=== PATIENT | male | born 1945 | race Caucasian/White ===

== ENCOUNTER 2019-10-07 10:28 | Inpatient (IN) | payer MEDICARE, SELFPAY ==
[2019-10-07] VITALS (26 sets, daily range): BP systolic 80–147; BP diastolic 30–94; PULSE 49–110; RESP 12–50; TEMP 34.1–36.3; O2SAT 90–100; BMI 26.0
--- NOTE | ~2019-10-07 | XR_ITS ---
EXAMINATION: XR chest 1V portable DATE: 10/09/2019 05:16 INDICATION: Acute respiratory failure. TECHNIQUE: A single frontal view of the chest was obtained. COMPARISON: Chest single view 10/08/2019, chest CT 10/08/2019 FINDINGS: Lung volumes are small. There are lucencies in the upper lungs. There are diffuse coarse in terstitial opacities in the lungs. There are airspace opacities in the mid and lower lung zones. No p leural effusion or pneumothorax. The heart size is normal. The endotracheal tube tip is 3.9 cm above the vernell. The nasogastric tube tip is in the stomach. An intra-aortic balloon pump is noted. A righ t internal jugular central venous catheter is seen with tip in the superior vena cava. There are mata ges of posterior fusion procedure in lumbar spine. IMPRESSION: 1. Diffuse lung disease with worsening on the left, likely pneumonia superimposed on a combination of emphysema and chronic interstitial lung disease. Reviewed, dictated and finalized at location A. IMPRESSION: 1. Diffuse lung disease with worsening on the left, likely pneumonia superimpos ed on a combination of emphysema and chronic interstitial lung disease.
--- NOTE | ~2019-10-07 | XR_ITS ---
EXAMINATION: XR chest 1V portable DATE: 10/08/2019 06:15 INDICATION: Acute respiratory failure. TECHNIQUE: A single frontal view of the chest was obtained. COMPARISON: Chest view 10/07/2019 FINDINGS: Lung volumes are small. There are diffuse coarse interstitial opacities in the lungs. No pl eural effusion or pneumothorax. The heart size is normal. The endotracheal tube tip is 4.8 cm above t he vernell. The nasogastric tube tip is in the stomach. A right internal jugular central venous cathet er is seen with tip in the superior vena cava. A surgical clip overlies the left hilum. There are glory nges of posterior fusion procedure in lumbar spine. IMPRESSION: 1. Stable diffuse lung disease, likely severe chronic interstitial lung disease. Reviewed, dictated and finalized at location A. IMPRESSION: 1. Stable diffuse lung disease, likely severe chronic interstitial lung disease .
--- NOTE | ~2019-10-07 | XR_ITS ---
EXAMINATION: XR abdomen NG/feed tube insert DATE: 10/07/2019 14:11 INDICATION: Nasogastric tube placement. TECHNIQUE: A supine view of the abdomen was obtained. COMPARISON: None. FINDINGS: The lower abdomen is excluded. There are no visible dilated loops of bowel. The nasogastric tube tip is in the stomach. The proximal side port is at the gastroesophageal junction. There are ch anges of posterior fusion procedure in lumbar spine. IMPRESSION: 1. Nasogastric tube tip in the stomach. Reviewed, dictated and finalized at location A.
--- NOTE | ~2019-10-07 | CT_ITS ---
EXAMINATION: CT brain wo con DATE: 10/08/2019 16:28 INDICATION: Altered mental status TECHNIQUE: Computed tomography (CT) of the head was performed without intravenous contrast. Sagittal and coronal reconstructions were performed. Automated exposure control and iterative reconstruction t echnique were employed. The dose-length product was 605.33 mGy-cm. COMPARISON: None FINDINGS: There is diffuse decrease in the conspicuity of the white matter differentiation along with effacemen t of the sulci and many of the basal cisterns suggesting diffuse cerebral edema and concerning for an oxic brain injury. No acute intracranial hemorrhage or abnormal extra axial fluid collection. Ventric les are symmetric but smaller in size than expected for age. The cerebellar tonsils appear low lying extending a few millimeters caudal to the level of the foramen magnum and suggesting developing tonsi llar herniation. No discrete masses identified. 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 Changes of left intraocular lens replacement. Mild mucosal thickening in the right sphenoid and alfred ateral ethmoid sinuses. Bilateral mastoid air cells and middle ear cavities are clear. There is small amount of cerumen/debris in the bilateral external auditory canals. Intracranial calcified cerebral atherosclerosis is noted. Left-sided nasogastric tube in expected position. IMPRESSION: 1. Suggestion of diffuse anoxic injury with global cerebral edema characterized by decrease in degree of orta-white matter differentiation, effacement of the sulci and basal cisterns and suggestion of d eveloping cerebellar tonsillar herniation. Reviewed, dictated and finalized at location A. IMPRESSION: 1. Suggestion of diffuse anoxic injury with global cerebral edema characterized by decrease in degree of orta-white matter differentiation, effacement of the sulci and basal cisterns and suggestion of developing cerebellar tonsillar juliano iation.
--- NOTE | ~2019-10-07 | XR_ITS ---
EXAMINATION: XR chest port-a-cath/central DATE: 10/07/2019 14:11 INDICATION: Intubation. TECHNIQUE: A single frontal view of the chest was obtained. COMPARISON: Left shoulder radiographs 11/10/2010 FINDINGS: Lung volumes are normal. There are coarse interstitial opacities throughout the lungs bilat erally. No pleural effusion or pneumothorax. The heart size is normal. The endotracheal tube tip is 4 .0 cm above the vernell. The nasogastric tube tip is in the stomach. A right internal jugular central venous catheter is seen with tip in the superior vena cava. There are surgical clips in the left neck . A surgical clip overlies the left hilum. IMPRESSION: 1. Diffuse lung disease, likely severe chronic interstitial lung disease. Reviewed, dictated and finalized at location A.
--- NOTE | ~2019-10-07 | XR_ITS ---
EXAMINATION: XR chest 1V portable DATE: 10/10/2019 06:04 INDICATION: Acute respiratory failure. TECHNIQUE: A single frontal view of the chest was obtained. COMPARISON: Chest single view 10/09/2019 FINDINGS: The lung volumes are small. There are interstitial and airspace opacities throughout the kymberly ngs bilaterally. No pleural effusion. There is a tiny right-sided pneumothorax with deep sulcus sign. There is gas in the neck and right chest wall. The heart size is normal. The endotracheal tube tip i s 4.3 cm above the vernell. The nasogastric tube tip is in the stomach. A right internal jugular centr al venous catheter is seen with tip in the superior vena cava. An intra-aortic balloon pump is noted. There are changes of posterior fusion procedure in lumbar spine. IMPRESSION: 1. Tiny right-sided pneumothorax. New soft tissue gas in the neck and right chest wall. I called thes e findings to Srinath Prado on 10/10/19 at 6:45 AM. 2. Stable diffuse lung disease, likely pneumonia superimposed on a combination of emphysema and chron ic interstitial lung disease. Reviewed, dictated and finalized at location A. IMPRESSION: 1. Tiny right-sided pneumothorax. New soft tissue gas in the neck and right melquiades st wall. I called these findings to Srinath Prado on 10/10/19 at 6:45 AM. 2. Stable diffuse lung disease, likely pneumonia superimposed on a combination of emphysema and chronic interstitial lung disease.
--- NOTE | ~2019-10-07 | US_ITS ---
EXAMINATION: US venous doppler [facility] DATE: 10/07/2019 16:11 INDICATION: Deep venous thrombosis TECHNIQUE: Grayscale ultrasound images without and with compression and Doppler ultrasound images of the bilateral lower extremity veins were obtained. COMPARISON: None. FINDINGS: The visualized portions of right common femoral vein, profunda (deep) femoral vein, femoral vein, pop liteal vein, posterior tibial veins, peroneal veins, gastrocnemius vein and greater saphenous vein ou tflow are patent. The visualized portions of left common femoral vein, profunda femoral vein, femoral vein, popliteal v ein, posterior tibial veins, peroneal veins, gastrocnemius vein and greater saphenous vein outflow ar e patent. IMPRESSION: 1. No deep venous thrombosis in either lower limb. Reviewed, dictated and finalized at location A.
--- NOTE | ~2019-10-07 | CT_ITS ---
EXAMINATION: CTA chest PE protocol EXAM DATE: 10/08/2019 16:29 INDICATION: Cardiac arrest. TECHNIQUE: Spiral CTA of the chest (pulmonary arteries) was performed with 100 cc Omnipaque 350 intr avenous contrast injection. Images were acquired during the pulmonary arterial phase. Coronal maxi mum intensity projection 3D-reconstructions were created by the technologist on dedicated workstation . Axial, coronal and sagittal reformatted images were reviewed. The dose-length product (DLP) for t his examination was 679.24 mGy-cm. The exposure was tailored according to patient size (auto mA exp osure control), and iterative reconstruction (ASIR) was used as additional dose reduction technique. There is no prior study for comparison. FINDINGS: Pulmonary arteries are well opacified and without intraluminal filling defects. Patient is intubated with endotracheal tube in position. No thoracic aortic dissection. There is severe inter stitial lung pulmonary fibrosis, honeycombing. There is dependent airspace disease which is likely oscar perimposed acute pneumonia and/or edema. No endobronchial debris to specifically suggest aspiration p neumonia. There are no pleural or pericardial effusions. Right hilar lymph node measuring 1.6 x 1. 0 cm, probably reactive. There is moderate emphysema. There is no pneumothorax. There is cardiomega ly. There is mild to moderate coronary arterial calcification, arterial sclerosis. Upper abdomen is unremarkable. There is thoracic spondylosis without osteoblastic or osteolytic lesions identified. Feeding tube in position. There is acute right 2nd rib fracture anteriorly, acute left 2nd, 4th and 5th and 6th rib fractures anteriorly. Chronic moderate compression fracture of T12. IMPRESSION: 1. No pulmonary emboli. 2. Severe pulmonary fibrosis with moderate basilar dependent acute airspace disease superimposed lik marifer pneumonia and/or edema. 3. Cardiomegaly. 4. Emphysema. 5. Rib fractures. Reviewed, dictated and finalized at location B. IMPRESSION: 1. No pulmonary emboli. 2. Severe pulmonary fibrosis with moderate basilar dependent acute airspace di sease superimposed likely pneumonia and/or edema. 3. Cardiomegaly. 4. Emphysema. 5. Rib fractures.
--- NOTE | 2019-10-07 10:32 | ECG_ITS ---
Measurements Intervals [place] Rate: 68 P: MA: 0 QRS: -15 QRSD: 123 T: -70 QT: 414 QTc: 443 Interpretive Statements ATRIAL FIBRILLATION RSR' IN V1 OR V2, CONSIDER RIGHT VENTRICULAR HYPERTROPHY OR RIGHT VCD ST ELEVATION IN INFERIOR LEADS- CONSIDER ACUTE INJURY MARKED ST DEPRESSION IN ANTEROLAT/HIGH LAT LEADS, CONSIDER SUBENDOCARDIAL INJURY ABNORMAL ECG Electronically Signed On 10-07-2019 12:08:39 CDT by Regino Marcano D.O.
--- NOTE | 2019-10-07 10:39 | ED.GENADULT ---
HPI - General Adult General Chief complaint: Unspecified Stated complaint: ROSC Time Seen by Provider: 10/07/19 10:32 Source: EMS Mode of arrival: EMS History of Present Illness HPI narrative: Patient presents via EMS for respiratory distress. He was in agonal breathing and intubated upon arrival. He lost a pulse and had CPR and 1 dose of epi. Pulse was regained. Then in route again he lost a pulse and was given epi. Again he regained a pulse. He arrived to the ER with no spontaneous movement. Pupils are unreactive. He has a good carotid pulse, but cannot palpate a radial pulse. His had called EMS for difficulty breathing. Onset (ago): hour(s) Review of Systems Review of Systems: Narrative: Unable to get a review of systems because the patient is. Unresponsive. Exam Narrative: Exam Narrative: Patient is unresponsive. He has bruising in his mid chest. Chest has pectus excavatum. Breath sounds are good with bagging. Good carotid pulse. Good heart sounds. His feet. Course Consultations Consultation #1: EKG has ST elevation and a STEMI was called. Dr. Santos responded immediately. Dr. Miramontes will take him to the [facility] Air Traffic Control Specialist. Date: 10/07/19 Time: 10:47 Vital Signs Vital signs: Vital Signs Temperature 96.5 F L 10/07/19 10:27 Pulse Rate 68 10/07/19 10:27 Respiratory Rate 12 10/07/19 10:27 Blood Pressure 81/68 L 10/07/19 10:27 Pulse Oximetry 100 10/07/19 10:27 Temperature 96.5 F L 10/07/19 10:27 Pulse Rate 77 10/07/19 10:38 Respiratory Rate 12 10/07/19 10:27 Blood Pressure 81/68 L 10/07/19 10:27 Pulse Oximetry 100 10/07/19 10:27 Medical Decision Making Vital Signs Vital Signs: Vital Signs Temperature 96.5 F L 10/07/19 10:27 Pulse Rate 68 10/07/19 10:27 Respiratory Rate 12 10/07/19 10:27 Blood Pressure 81/68 L 10/07/19 10:27 Pulse Oximetry 100 10/07/19 10:27 Temperature 96.5 F L 10/07/19 10:27 Pulse Rate 77 10/07/19 10:38 Respiratory Rate 12 10/07/19 10:27 Blood Pressure 81/68 L 10/07/19 10:27 Pulse Oximetry 100 10/07/19 10:27 ECG Data EKG #1: Attestation: I personally reviewed and interpreted this ECG as follows: ECG completion date: 10/07/19 ECG completion time: 10:33 Prior ECG tracings: not available for review Ischemic changes: acute STEMI Critical Care Time Critical Care Time Critical Care Time: Yes Total Critical Care Time: 30 Discharge Plan Discharge Clinical Impression: Acute ST elevation myocardial infarction (STEMI), Respiratory failure, Unresponsive Patient Disposition: Still a Patient Condition: Guarded Prognosis Follow-up/Referrals: PHYSICIAN NOT ON STAFF,NONSTAFF [Primary Care Provider] -
--- NOTE | 2019-10-07 10:48 | PC.NURSE ---
called lab about add-ons
[2019-10-07 10:49] LABS: Basophils Absolute Auto 0.2 K/mm3 (0.0-0.1); Basophils Percent Auto 0.9 % (0.2-1.2); Eosinophils Absolute Auto 0.3 K/mm3 (0-0.3); Eosinophils Percent Auto 1.5 % (0-4.4); Hematocrit 30.6 % (42.0-52.0); Hemoglobin 9.6 g/dL (14.0-18.0); Immature Granulocyte Absolute 1.16 K/mm3 (0.00-0.031); Immature Granulocyte Percent A 6.5 % (0-0.5); Lymphocytes Absolute Auto 9.21 K/mm3 (0.9-3.2); Lymphocytes Percent Auto 51.3 % (18.3-44.2); Mean Corpuscular HGB Conc 31.4 g/dl (32-36); Mean Corpuscular Hemoglobin 32.4 pg (26-34); Mean Corpuscular Volume 103.4 fl (80-100); Mean Platelet Volume 10.5 fl (7.4-10.4); Monocytes Absolute Auto 0.8 K/mm3 (0.1-0.6); Monocytes Percent Auto 4.6 % (2.6-8.5); Neutrophils Absolute Auto 6.3 K/mm3 (1.3-6.7); Neutrophils Percent Auto 35.2 % (45.5-73.1); Nucleated Red Blood Cells Absolute Auto 0.1 K/mm3 (0.0-0.012); Nucleated Red Blood Cells Perc 0.7 % (0.0-0.2); Platelet Count Result 187 k/mm3 (150-375); Red Blood Count 2.96 M/mm3 (4.6-6.20); Red Cell Distribution Width 13.6 % (11.5-14.5)
[2019-10-07 11:02] LABS: Albumin Level 3.5 g/dL (3.5-5.1); Alkaline Phosphatase 119 U/L (38-126); Anion Gap 19 mmol/L (8-16); Aspartate Amino Transferase 77 U/L (17-59); Bilirubin,Total 0.5 mg/dL (0.2-1.3); Blood Urea Nitrogen 16 mg/dL (9-20); Calcium 9.4 mg/dL (8.4-10.2); Carbon Dioxide 14 mmol/L (22-30); Chloride 106 mmol/L (98-107); Estimated CRCL calculation 46 ml/min; Estimated Glomerular Filt Rate 59; Glucose 294 mg/dL (75-110); Potassium 4.3 mmol/L (3.4-5.0); Sodium 139 mmol/L (137-145)
[2019-10-07 11:11] LABS: Alanine Aminotransferase 52 U/L (4-50)
[2019-10-07 11:24] LABS: Add Urine Microscopic? YES; Appearance Urine Clear (Clear); Bacteria Urine Trace /hpf; Bilirubin Urine Negative (Negative); Blood Urine Negative (Negative); Color Urine Yellow (Yellow); Glucose Urine UA Negative (Negative); Ketones Urine Trace mg/dL (Negative); Leukocyte Esterase Ur Negative LEU/UL (Negative); Mucus Urine Rare /lpf; Nitrate Urine Negative (Negative); Protein Urine 1+ mg/dL (Negative); WBC Urine 0-3 /hpf
[2019-10-07 11:27] LABS: NT Pro B Type Natriuretic Pept 7090 PG/ML (5-100)
--- NOTE | 2019-10-07 12:02 | WPDCARDPROC ---
Cardiac Cath Procedure Note Date of procedure:: 10/07/19 Performing physician:: Isaías Miramontes MD Indication:: Out of hospital PA arrest abnormal ECG suggestive of acute inferior infarction upon arrival Brief clinical history:: this is a 74-year-old patient who sustained an hrx-jc-qoxohean arrest and upon arrival in the seen found to be in pulseless electrical activity. He was resuscitated twice and is found to be hypotensive in the emergency room. The patient was intubated in the field. His electrocardiogram is consistent with acute inferoposterior infarction and for this reason emergency catheterization was requested. Procedure Procedure performed:: Emergency coronary angiography left ventriculography attempt RCA PCI placement of intra-aortic balloon pump Sedation/Medication given:: patient unresponsive no sedation delivered in the fence laborer Case start time 11:10 a.m. case end time 12 noon Access site:: right femoral artery, right femoral vein Estimated blood loss:: 30-40 cc Procedure note:: patient was brought to the cardiac catheterization lab intubated and unresponsive. The right femoral triangle was prepared in the usual fashion and I used the modified Seldinger technique to place 6 Polish sheaths in the femoral artery and in the femoral vein. Venous access was placed as the patient was noted to be concerning the bradycardic in the emergency room earlier. Following access the left coronary artery was engaged and injected using a standard 5 Polish FL4 catheter. The right coronary was engaged and injected sing a standard 5 Polish JR4 catheter. Following this patient was systemically anticoagulated with Angiomax and a attempt was made at right coronary PCI as detailed below. Following this attempt guiding catheter and guidewires. A 5 Polish angled pigtail catheter was then advanced into the left ventricle and a left ventriculogram was performed in the URBINA projection. Following this I elected to place the intra-aortic balloon pump the device was secured into position the patient was taken to the intensive care unit for further management. Findings:: Hemodynamics: central aortic pressure 66/32, left ventricle 66/6 end-diastolic 14. No gradient on pullback across the aortic valve. Left ventricle: The LV was injected in the URBINA projection is of normal size and contracts hyperdynamic fashion the ejection fraction is visually estimated to be 80%. There are no regional wall motion abnormalities. The left main coronary artery is medium in caliber there is modest left main disease proximally to approximately 30-40% left main stenosis is identified which is eccentric. The left main coronary artery is moderate to large in caliber it is very tortuous and without significant disease it is patent down to the apex. The circumflex is also a medium caliber vessel that is widely patent and very tortuous. The marginal branches have no significant stenosis. Right coronary artery is dominant to the posterior circulation it is 100% occluded in the 2nd portion. There are 2 RV branches receiving flow prior to the occlusion. There is excellent very well-developed collaterals to the. RCA occluded both the PDA and the PL branches fill from the left coronary artery. They are large and of good caliber. Because of the acute presentation I did attempt to PCI of the occluded RCA and engaged the vessel with a 6 Polish JR4 guiding catheter with side holes. Both 0.014 BMW and a 0.014 gliding pilot instructor wire were advanced to the lesion the Instrument Adjuster wire was actually advanced through the stenosis into the 3rd portion of the RCA. Angioplasty balloon however would not advanced beyond the site of occlusion the vessel appears to clearly be a chronic total occlusion and further attempts at PCI of this are not indicated Conclusion:: 1. out of hospital cardiac arrest with pulseless electrical activity etiology currently on clear 2. abnormal electrocar
--- NOTE | 2019-10-07 13:15 | PM.IMHP ---
H&P: HPI History of Present Illness Date/Time: Date of service: 10/07/19 13:15 Chief complaint: STEMI Narrative: Perico Rhoades is a 74 year old male who presented to the emergency department via EMS called by his after he was unresponsive as he is going to sent bedside commode found have agonal breathing by EMS. He was unresponsive subsequently found to be in PEA arrest for which ACL protocol was administered with ROSC after one round of CPR with Epinephrine. Enroute, patient once again became pulseless resuscitated again after 1 round of CPR and epinephrine. In the emergency department 12 EKG revealed significant inferior ST elevations with posterior extension and anterolateral reciprocal changes consistent with acute current of injury patient was hypotensive and initially bradycardic followed by rate controlled atrial fibrillation. He was unresponsive ER. After further discussion with the case with Dr. Miramontes decision was made take the patient to the cardiac catheterization lab emergently. Patient's is not available at this time as patient was unable to provide any history. After my initial encounter with the patient records became available he was apparently hospitalized at [facility] August 14, 2019 for acute on chronic respiratory failure and is noted to have a history of chronic respiratory failure on O2 6 L nasal cannula recently increased and 9 L worsening shortness of breath per documentation obtained from the patient's . Feeling relatively weak this altogether and on well. At per documentation from [facility] she apparently had a cardiac catheterization performed a few months prior to that admission. Those details remain unknown. Patient has a prior documented history of diabetes mellitus, hypertension, dyslipidemia, I LD or chronic kidney disease, chronic respiratory failure with hypoxia on chronic home O2, coronary artery disease. During his recent hospitalization he was treated with ceftriaxone and azithromycin, COVID swab was negative x2. He was given pulse dose steroids. Review of Systems Review of Systems: All systems reviewed & are unremarkable except as noted in HPI and below ROS unobtainable: Yes unobtainable due to endotracheal tube, unobtainable due to mental status and other ( Patient unresponsive) Constitutional: Constitutional: Reports as per HPI and Reports no additional constitutional complaints Eyes: Eyes: Reports as per HPI and Reports no additional eye complaints ENT: Reports system reviewed and no additional complaints, except as documented and Reports as per HPI Cardiovascular: Cardiovascular: Reports as per HPI and Reports no additional cardiovascular complaints Respiratory: Respiratory: Reports as per HPI and Reports no additional respiratory complaints Gastrointestinal: Gastrointestinal: Reports as per HPI and Reports no additional gastrointestinal complaints Genitourinary: Genitourinary: Reports no additional male genitourinary complaints and Reports as per HPI Musculoskeletal: Musculoskeletal: Reports no additional musculoskeletal complaints and Reports as per HPI Integumentary/Breasts: Skin/Breast: Reports system reviewed and no additional complaints, except as docu and Reports as per HPI Neurologic: Reports system reviewed and no additional complaints, except as documented and Reports as per HPI Psychiatric: Psychiatric: Reports no additional psychiatric complaints and Reports as per HPI Endocrine: Endocrine: Reports no additional endocrine complaints and Reports as per HPI Hematologic/Lymphatic: Hematologic/Lymphatic: Reports no additional hematologic/lymphatic complaints and Reports as per HPI Allergic/Immunologic: Allergic/Immunologic: Reports no additional allergic/immunologic complaints and Reports as per HPI [facility] Past Medical History Medical History Asbestos exposure Chronic back pain Coronary artery disease Diabetes Esse
--- NOTE | 2019-10-07 13:18 | ECHO_ITS ---
Patient Info Name: Perico Rhoades Age: 74 years : 1945 Gender: Male Ht: 68 in Wt: 159 lbs BSA: 1.87 m2 HR: 91 bpm BP: 85 / 36 mmHg Heart Rhythm: Sinus Rhythm Technical Quality: Fair Exam Date: 10/07/2019 2:35 PM Exam Location: [facility] Patient Status: Inpatient Admit Date: 10/07/2019 Staff Ordering Physician: August Santos MD Numerical Control Nesting Operator: Vidhya Wills RDCS Attending Provider: August Santos MD Referring Physician: Tom LAY; Exam Type: CA echo doppler color flow Study Info Indications I46.9 - Cardiac arrest, cause unspecified Complete two-dimensional, color flow and Doppler transthoracic echocardiogram is performed. Summary 1. Left ventricular systolic function is normal, estimated at 65-70%. 2. There is no increased left ventricular wall thickness. 3. The left ventricular diastolic function is grade I diastolic dysfunction. 4. D shaped septum in systole and diastole consistent with right ventricular pressure and/or volume overload. 5. Right ventricular chamber dimension is severely enlarged. 6. Right ventricular systolic function is severely reduced. 7. Right atrial chamber dimension is mildly enlarged. 8. There is no aortic valve stenosis. 9. There is trace mitral valve regurgitation. 10. There is mild tricuspid valve regurgitation. 11. Moderate pulmonary hypertension, estimated pulmonary arterial systolic pressure is 45 mmHg. 12. Normal inferior vena cava with >50% collapse upon inspiration consistent with normal right atrial pressure, 5 mmHg. Left Ventricle Left ventricular chamber dimension is normal. Left ventricular systolic function is normal, estimated at 65-70%. There is no increased left ventricular wall thickness. The left ventricular diastolic function is grade I diastolic dysfunction. D shaped septum in systole and diastole consistent with right ventricular pressure and/or volume overload. Right Ventricle Right ventricular chamber dimension is severely enlarged. Right ventricular systolic function is severely reduced. Left Atria Left atrial chamber dimension is normal. Right Atria Right atrial chamber dimension is mildly enlarged. Aortic Valve The aortic valve is trileaflet. There is mild aortic valve sclerosis. There is no aortic valve stenosis. There is trace aortic valve regurgitation. Pulmonic Valve The pulmonic valve is not well visualized. Mitral Valve The mitral valve has normal leaflets. There is trace mitral valve regurgitation. The mitral valve annulus is moderately calcified. Tricuspid Valve The tricuspid valve leaflets are normal. There is mild tricuspid valve regurgitation. Moderate pulmonary hypertension, estimated pulmonary arterial systolic pressure is 45 mmHg. Pericardium/Pleural The pericardium appears normal. There is no pericardial effusion. Inferior Vena Cava Normal inferior vena cava with >50% collapse upon inspiration consistent with normal right atrial pressure, 5 mmHg. Aorta The aortic root size at the sinus of Valsalva is normal. Left Ventricular Outflow Tract Name Value Normal LVOT 2D LVOT Diameter 2.0 cm LVOT Doppler
--- NOTE | 2019-10-07 13:47 | ADMGEN ---
This patient, Perico Rhoades, was admitted to Intensive Care Unit-11. Patient/family oriented to hospital policies and general routines including ID bracelet, bed and alarms, visiting hours, pain management, procedures, bathroom and other care routines, personal items, smoking policy, room service/diet, and visiting hours. Valuables list has been completed. Information on how to activate the Rapid Response Team has been discussed. Patient/Family are encouraged to report perceived risks to care and to ask questions if they do not understand what they are told or what they should do.
--- NOTE | 2019-10-07 14:01 | WPDCNINT ---
Assessment and Plan Assessment and plan (1) Cardiopulmonary arrest with successful resuscitation: Code(s): I46.9 - Cardiac arrest, cause unspecified Status: Acute Assessment and Plan: patient with PEA arrest. According to the likely prolonged down time before EMS could arrive (approximately 30 minutes). CPR on the field with ROSC after 1 round of epi, patient was again pulseless EN route to the ER, CPR with another round of epi before ROSC. - Patient has been unresponsive - cardiac catheterization with no acute coronary /cardiac event - intra-aortic balloon pump in place due to severe hypotension (2) Acute ST elevation myocardial infarction (STEMI): Qualifiers: Involved coronary artery: unspecified coronary artery Qualified Code(s): I21.3 - ST elevation (STEMI) myocardial infarction of unspecified site Code(s): I21.3 - ST elevation (STEMI) myocardial infarction of unspecified site Status: Acute Assessment and Plan: acute ST-elevation RI on EKG done in the ER status post coronary artery angiogram which demonstrated chronic total occlusion of the right coronary artery with excellent collateral filling and hyperdynamic LV systolic function with EF of 80%. Modest nonocclusive left main disease otherwise no significant left coronary disease. - No intervention was done (3) Respiratory failure: Qualifiers: Chronicity: acute Respiratory failure complication: unspecified whether with hypoxia or hypercapnia Qualified Code(s): J96.00 - Acute respiratory failure, unspecified whether with hypoxia or hypercapnia Code(s): J96.90 - Respiratory failure, unspecified, unspecified whether with hypoxia or hypercapnia Status: Acute Assessment and Plan: patient was intubated on the field by EMS - this could likely be secondary to shock, acidosis, acute on chronic respiratory failure secondary to moderate interstitial lung disease. - Patient currently intubated on CMV mode of ventilation, ABGs reviewed, ventilator adjusted - chest x-ray shows bilateral diffuse infiltrates - started patient on ceftriaxone and azithromycin - obtain urine Legionella, urine pneumococcal antigen - sputum culture pulmonary function test on 07/25/2019 at [facility] showed moderate restrictive ventilatory defect ( report is in the chart) (4) Shock: Code(s): R57.9 - Shock, unspecified Status: Acute Assessment and Plan: shock, initially thought to be cardiogenic but most likely septic - severe hypotension, lactic acidosis which could be multifactorial his 2nd to cardiac arrest and septic shock - will give IV fluid bolus - monitor urine output - continue antibiotics as above - blood and urine cultures have to obtained along with urinalysis - start patient on stress dose steroids - elevated lactic acidosis, will trend (5) Diabetes: Code(s): E11.9 - Type 2 diabetes mellitus without complications Status: Acute Assessment and Plan: Accu-Cheks with high-dose sliding scale for hyperglycemia - hemoglobin A1c of 8.1 this admission (6) DVT prophylaxis: Code(s): Z29.9 - Encounter for prophylactic measures, unspecified Status: Acute Assessment and Plan: SCDs (7) Dietary counseling and surveillance: Code(s): Z71.3 - Dietary counseling and surveillance Status: Acute Assessment and Plan: NPO for now Additional Plan discussed with along with Dr. Mcgregor, updated her with patient's condition, lab, radiology at cardiac catheterization reports. Also history was obtained to a good extent from the . I Answered all questions. I did discuss regarding code status to which the requested that we make him a do not resuscitate. Code status: do not resuscitate critical care time spent: 54 minutes Due to a high probability of clinically significant, life threatening
[2019-10-07 14:18] LABS: Fractional Inspired Oxygen 100 %; HCO3 ABG 8.8 mEq/l (22.0-26.0); Oxygen Content ABG 15.5 %vol (16.0-22.0); Oxygen Saturation ABG 99.6 % (95.0-100.0); Oxyhemoglobin 98.2 % THb (90.0-100.0); PCO2 ABG 30.9 mmHg (35.0-45.0); PO2 ABG 362.1 mmHg (80.0-100.0); PO2 FiO2 Ratio Arterial Blood 3.62 %; Total Hemoglobin 10.5 g/dL (12.0-18.0)
[2019-10-07 14:19] LABS: Device VENTILATOR; Site Drawn ARTLINE; pH ABG 7.073 (7.350-7.450)
[2019-10-07 14:20] LABS: Arterial Blood Gas PEEP 5 cmH2O; Arterial Blood Gas Tidal Volume 450 ml; Arterial Blood Gas Vent Mode CMV; Arterial Blood Gas Ventilator rate 14 /MIN
[2019-10-07 14:35] LABS: Lactic Acid 12.1 mmol/L (0.7-2.1)
[2019-10-07 14:36] LABS: Troponin I 0.424 ng/mL (0.000-0.034)
[2019-10-07 14:36] LABS: Hemoglobin 9.8 g/dL (14.0-18.0); Mean Corpuscular HGB Conc 31.6 g/dl (32-36); Mean Corpuscular Volume 101.3 fl (80-100); Mean Platelet Volume 10.1 fl (7.4-10.4); Platelet Count Result 209 k/mm3 (150-375); Red Blood Count 3.06 M/mm3 (4.6-6.20); Red Cell Distribution Width 13.6 % (11.5-14.5); White Blood Count 23.4 K/mm3 (4.5-10.0)
[2019-10-07 14:46] LABS: INR 1.8; Prothrombin Time 20.6 Seconds (11.1-14.7)
[2019-10-07 14:49] LABS: Hemoglobin A1C 8.1 % (<5.7)
[2019-10-07] MEDS: NOREPINEPHRINE 8 MG/D5W 250 ML 8 MG/250 ML BAG 37.5 MG IV CONT ×2 (14:50→20:57)
[2019-10-07] MEDS: SODIUM BICARBONATE 8.4% 50 MEQ/50 ML VIAL 100 MEQ IV PUSH ×2 (14:51→19:06)
[2019-10-07] MEDS: SODIUM CHLORIDE 0.9% IV 1,000 ML 999 ML IV CONT ×2 (14:51→15:53)
[2019-10-07 14:54] LABS: Band Neutrophils Percent 13 % (0-6); Monocytes Absolute Manual 1.63 K/mm3 (0.1-0.90); Monocytes Percent Manual 7 % (3-9); Neutrophils Absolute Manual 19.65 K/mm3 (1.3-6.7); Neutrophils Percent Manual 71 % (46-73); Platelet Estimate Adequate (Adequate); Total Cells Counted 100
--- NOTE | 2019-10-07 14:56 | P.PCNBED_ITS ---
Procedures Central Line Placement Right IJ: Central Line Date: 10/07/19 Discussed w/ the patient/family/POA,the placement of a central venous catheter, including its clinical necessity/indication & associated potential risks, benifits and alternatives.: Yes The patient/family/POA understand(s) and acknowledge(s) the need to proceed with central venous catheter insertion as an important element of the patient's clinical management.: Yes Time Out Performed: Yes Patient Position: supine Patient placed on monitor/pulse ox: Yes Provider Prep: mask, sterile gown, sterile gloves, Max. sterile barrier precautions, cap and hand hygiene with conventional soap/water or alcohol based hand rub Central line prep: 2% Chlorhexidine scrub and sterile full body sheet applied Local anesthesia used: lidocaine 1% Amount of anesthesia used (ml): 3 Sterile US Technique with sterile gel/sterile probe covers: Yes Central line lumen inserted: triple Setswana: 16 Length (cm): 16 Depth of Insertion (cm): 16 Post procedure: sutured in place, good blood return, all ports aspirated, flushed, capped, tegaderm, hemostatic disc, antimicrobial disc and aseptic technique maintained throughout procedure Post procedure x-ray: tip of catheter in good position and no pneumothorax seen Patient tolerated procedure: well and no complications Complications: none
--- NOTE | 2019-10-07 14:58 | WPDPROCEDUR ---
Procedures Arterial Line Arterial Line Date: 10/07/19 Discussed with the patient/family/POA, the placement of an arterial catheter, including its clinical necessity/indication and associated potential risks, benefits and alternatives.: Yes Patient/family/POA and/or understands and acknowledges the need to proceed with the arterial catheter insertion as an important element of the patient's clinical management.: Yes Time Out Performed: Yes Patient Position: supine Sports Medicine Physician Prep: sterile gown, sterile gloves, mask and hat Site: left and femoral Site Prep: chlorhexidine and sterile drape Skin Anesthesia: 1% lidocaine Technique used: ultrasound-guided Length: 12 cm Closure/Dressing: suture, antimicrobial disc and tegaderm Patient tolerated procedure: well and no complications Complications: none
[2019-10-07 15:02] LABS: Lactic Acid Reflex 12.3 mmol/L (0.7-2.1)
[2019-10-07 15:16] LABS: D Dimer > 20.00 ug/mL (<0.48); Partial Thromboplastin Time 197.6 SECONDS (22.3-36.8)
[2019-10-07] MEDS: SODIUM BICARBONATE 8.4% 150 MEQ in WATER, STERILE FOR INJECTION 950 ML 75 MEQ IV CONT (15:21)
[2019-10-07] MEDS: HYDROCORTISONE SODIUM SUCCINATE 100 MG/2 ML VIAL IV PUSH ×2 (15:52→21:02)
[2019-10-07] MEDS: levETIRAcetam 500MG/NACL 100ML 500 MG/100 ML BAG 400 MG IVPB (15:58)
--- NOTE | 2019-10-07 16:09 | PM.CNPUL ---
Assessment and Plan Assessment and plan (1) Pulmonary fibrosis: Code(s): J84.10 - Pulmonary fibrosis, unspecified Status: Acute Assessment and Plan: Likely IPF/UIP. Will need pulmonary records from [place]. Apparently he recently was hospitalized for presumed IPF exacerbation in July 2019 and was treated with pulse dose steroids as well as antibiotics I''m sure. He's only requiring 60% FiO2 with PEEP of 5. Not quite sure if he's having an exacerbation. Agree with hydrocortisone for possible relative adrenal insufficiency. Low TV volume strategy TV 400-450 based on his height. Manage metabolic acidosis with bicarb drip. Current recommend settings CMV AC/VC: TV 450, RR 30, FiO2 60%, PEEP of 5, titrate FiO2 for 92-96%. Sputum culture. Prognosis if very poor and high risk for . DNR is appropriate and if he continues to get worse, consider offering comfort measures. SARS-CoV-2 pending. (2) Shock: Code(s): R57.9 - Shock, unspecified Status: Acute Assessment and Plan: Cardiogenic shock rule out. Likely septic. P.E. may also be possible but he's too unstable for CT P.E. Echo pending. RV may be strained due to chronic IPF and hypoxia. Recommend IVF boluses gently along with vasopresor support, broad spectrum antibiotics and cultures. History of Present Illness History of Present Illness Consult date: 10/07/19 Chief complaint: STEMI Narrative: 74y y/o male with history of IPF presents with progressive worsening dyspnea and hypoxia leading to PEA arrest. ROSC was achieved but unclear as to total down time. I was consulted for management of his IPF. He underwent a cardiac cath for inferior ST changes but showed no acute occlusion. He is in severe metabolic acidosis from lactic acidosis. Most labs are pending. CXR showing patter of IPF/UIP. Difficult to r/o any concurrent pneumonia. He is now intubated sedated, still in shock, Review of Systems Review of Systems: All systems reviewed & are unremarkable except as noted in HPI and below PMFSH Past Medical History Medical History Asbestos exposure Chronic back pain Coronary artery disease Diabetes Essential hypertension History of West Nile virus (WNV) infection Hyperlipidemia Interstitial lung disease Surgical History Surgical History History of left-sided carotid endarterectomy History of spinal surgery Family History Family History Sibling Cerebral aneurysm Father Heart disease Social History Social History Social History: history of tobacco use, illicit drug use and alcohol, quit in 1998 Meds Home Medications and Allergies Home Medications Medication Instructions Recorded Confirmed Type glimepiride 4 mg PO BID 10/07/19 10/07/19 History metformin 1,000 mg PO BID 10/07/19 10/07/19 History metoprolol succinate 25 mg PO DAILY 10/07/19 10/07/19 History omeprazole 20 mg PO BID 10/07/19 10/07/19 History Allergies Allergy/AdvReac Type Severity Reaction Status Date / Time No Known Allergies Allergy Verified 10/07/19 16:20 Vital Signs Vital Signs - 24 hr 10/07/19 10:27 10/07/19 10:38 10/07/19 10:40 Temperature 35.8 C L Pulse Rate 68 77 49 L Respiratory Rate 12 Blood Pressure 81/68 L Pulse Oximetry 100 90 10/07/19 10:51 10/07/19 10:58 10/07/19 12:38 Temperature Pulse Rate 55 L 57 L 84 Respiratory Rate 19 20 33 H Blood Pressure 102/73 82/53 L 102/71 Pulse Oximetry 93 100 100 10/07/19 13:39 10/07/19 14:10 Temperature Pulse Rate 85 Respiratory Rate Blood Pressure 85/36 L Pulse Oximetry 99 Exam Const: General: in distress Other: tachypneic Neck: Neck: supple and no JVD Resp: Auscultation: crackles (fine crackles to bases ) bilateral Cardio: Rate:
[2019-10-07 16:29] LABS: Albumin Level 3.5 g/dL (3.5-5.1); Alkaline Phosphatase 152 U/L (38-126); Anion Gap 22 mmol/L (8-16); Aspartate Amino Transferase 249 U/L (17-59); Bilirubin,Total 0.5 mg/dL (0.2-1.3); Blood Urea Nitrogen 20 mg/dL (9-20); CRP 5.3 mg/dL (<1.0); Calcium 8.7 mg/dL (8.4-10.2); Carbon Dioxide 10 mmol/L (22-30); Chloride 107 mmol/L (98-107); Estimated CRCL calculation 40 ml/min; Estimated Glomerular Filt Rate 49; Glucose 293 mg/dL (75-110); Lactate Dehydrogenase 1834 U/L (313-618); Magnesium 1.4 mg/dL (1.6-2.3); Phosphorus 7.7 mg/dL (2.5-4.5); Potassium 6.2 mmol/L (3.4-5.0); Sodium 139 mmol/L (137-145)
[2019-10-07 17:09] LABS: Add Urine Microscopic? YES; Appearance Urine Cloudy (Clear); Bilirubin Urine Negative (Negative); Blood Urine 2+ (Negative); Color Urine Yellow (Yellow); Glucose Urine UA 1+ mg/dL (Negative); Ketones Urine Trace mg/dL (Negative); Leukocyte Esterase Ur Negative LEU/UL (NEGATIVE); Mucus Urine Rare /lpf; Nitrate Urine Negative (Negative); Protein Urine 2+ mg/dL (Negative); Squamous Epithelial Cell Urine Occasional /hpf (Few); Urobilinogen Urine Negative mg/dL (<2.0)
[2019-10-07] MEDS: VASOPRESSIN INJ 100 UNITS in DEXTROSE 5% 95 ML IV CONT (17:13)
[2019-10-07] MEDS: ALBUTEROL SULFATE NEB 2.5 MG/3 ML INH 15 MG INHALATION (17:15)
[2019-10-07 17:17] LABS: Specific Grav Ur 1.033 (1.001-1.035)
[2019-10-07 17:34] LABS: Reflex Lactic Acid Yes or No Add Lactic
[2019-10-07] MEDS: INSULIN ASPART (*BKC) 100 UNITS/ML SUB-Q (17:59)
[2019-10-07] MEDS: MAGNESIUM SULF 2 GM/WATER 50ML 2 GM/50 ML BAG IVPB (18:02)
[2019-10-07] MEDS: SODIUM BICARBONATE 8.4% 50 MEQ/50 ML VIAL IV PUSH (18:02)
[2019-10-07] MEDS: INSULIN HUMAN REGULAR (*BKC) 100 UNITS/ML 10 UNITS IV PUSH (18:03)
[2019-10-07] MEDS: SODIUM POLYSTYRENE SULFONONATE 15 GM/60 ML BTL PO (18:03)
[2019-10-07 18:04] LABS: Alanine Aminotransferase 106 U/L (4-50)
[2019-10-07] MEDS: DEXTROSE 50% 25 GM/50 ML SYRINGE IV PUSH (18:04)
[2019-10-07 18:28] LABS: Alveolar/Arterial O2 Gradient 192.6 mmHg; Carboxyhemoglobin 0.3 % THb (0-2.0); Fractional Inspired Oxygen 50 %; Methemoglobin ABG 0.1 %THb (0-1.5); Oxygen Content ABG 12.7 %vol (16.0-22.0); Oxygen Saturation ABG 97.7 % (95.0-100.0); Oxyhemoglobin 96.2 % THb (90.0-100.0); PCO2 ABG 25.9 mmHg (35.0-45.0); PO2 ABG 134.8 mmHg (80.0-100.0); Reduced Hemoglobin 3.4 %THb (0-5.0); Total Hemoglobin 9.2 g/dL (12.0-18.0)
[2019-10-07 18:29] LABS: Arterial Blood Gas PEEP 5 cmH2O; Arterial Blood Gas Tidal Volume 450 ml; Arterial Blood Gas Vent Mode CMV; Arterial Blood Gas Ventilator rate 30 /MIN; Device VENTILATOR; Site Drawn ARTLINE; pH ABG 7.105 (7.350-7.450)
[2019-10-07 18:31] LABS: Glucose Point of Care 368 (65-105)
[2019-10-07 18:40] LABS: Lactic Acid 11.4 mmol/L (0.7-2.1)
[2019-10-07] MEDS: FAMOTIDINE 20 MG/2 ML VIAL IV PUSH (21:01)
[2019-10-08] VITALS (51 sets, daily range): BP systolic 85–156; BP diastolic 28–64; PULSE 72–105; RESP 30–50; TEMP 35.2–37.7; O2SAT 91–100; BMI 26.5
[2019-10-08 00:05] LABS: Glucose Point of Care > 500 (65-105)
[2019-10-08 00:36] LABS: Anion Gap 18 mmol/L (8-16); Blood Urea Nitrogen 26 mg/dL (9-20); Calcium 7.7 mg/dL (8.4-10.2); Carbon Dioxide 19 mmol/L (22-30); Chloride 100 mmol/L (98-107); Estimated CRCL calculation 37 ml/min; Estimated Glomerular Filt Rate 46; Glucose 545 mg/dL (75-110); Potassium 4.6 mmol/L (3.4-5.0); Sodium 137 mmol/L (137-145)
[2019-10-08 00:37] LABS: Lactic Acid 11.8 mmol/L (0.7-2.1)
[2019-10-08] MEDS: INSULIN HUMAN REGULAR (*BKC) 100 UNITS/ML 8 UNITS IV PUSH (00:55)
[2019-10-08] MEDS: SODIUM CHLORIDE 0.9% IV 1,000 ML 999 ML IV CONT (00:55)
[2019-10-08 00:57] LABS: Magnesium 1.6 mg/dL (1.6-2.3)
[2019-10-08] MEDS: INSULIN HUMAN REGULAR (*BKC) 100 UNITS in SODIUM CHLORIDE 0.9% IV 99 ML 8.7 UNITS IV CONT (01:30)
[2019-10-08] MEDS: SODIUM BICARBONATE 8.4% 150 MEQ in WATER, STERILE FOR INJECTION 950 ML 100 MEQ IV CONT (02:46)
[2019-10-08] MEDS: levETIRAcetam 500MG/NACL 100ML 500 MG/100 ML BAG 400 MG IVPB ×2 (03:43→18:29)
[2019-10-08 04:29] LABS: Alveolar/Arterial O2 Gradient 226.1 mmHg; Base Excess ABG -4.6 mEq/l (+/-2.0); Carboxyhemoglobin 0.3 % THb (0-2.0); Fractional Inspired Oxygen 50 %; HCO3 ABG 20.4 mEq/l (22.0-26.0); Methemoglobin ABG 0.4 %THb (0-1.5); Oxygen Content ABG 12.7 %vol (16.0-22.0); Oxygen Saturation ABG 96.4 % (95.0-100.0); PCO2 ABG 37.4 mmHg (35.0-45.0); PO2 ABG 88.3 mmHg (80.0-100.0); PO2 FiO2 Ratio Arterial Blood 1.77 %; Reduced Hemoglobin 5.3 %THb (0-5.0); Total Hemoglobin 9.5 g/dL (12.0-18.0); pH ABG 7.355 (7.350-7.450)
[2019-10-08 04:30] LABS: Device VENTILATOR; Site Drawn ARTLINE
[2019-10-08 04:31] LABS: Arterial Blood Gas PEEP 5 cmH2O; Arterial Blood Gas Tidal Volume 450 ml; Arterial Blood Gas Vent Mode CMV; Arterial Blood Gas Ventilator rate 30 /MIN
[2019-10-08 04:51] LABS: Hematocrit 25.1 % (42.0-52.0); Hemoglobin 8.4 g/dL (14.0-18.0); Mean Corpuscular HGB Conc 33.5 g/dl (32-36); Mean Corpuscular Hemoglobin 31.7 pg (26-34); Mean Corpuscular Volume 94.7 fl (80-100); Mean Platelet Volume 10.2 fl (7.4-10.4); Platelet Count Result 118 k/mm3 (150-375); Red Blood Count 2.65 M/mm3 (4.6-6.20); Red Cell Distribution Width 13.4 % (11.5-14.5); White Blood Count 14.5 K/mm3 (4.5-10.0)
[2019-10-08 05:02] LABS: INR 1.5; Prothrombin Time 17.6 Seconds (11.1-14.7)
[2019-10-08 05:03] LABS: Partial Thromboplastin Time 46.8 SECONDS (22.3-36.8)
[2019-10-08 05:15] LABS: Lactic Acid 6.9 mmol/L (0.7-2.1)
[2019-10-08 05:19] LABS: D Dimer 13.64 ug/mL (<0.48)
[2019-10-08 05:25] LABS: Alanine Aminotransferase 155 U/L (4-50); Albumin Level 2.9 g/dL (3.5-5.1); Alkaline Phosphatase 106 U/L (38-126); Anion Gap 12 mmol/L (8-16); Aspartate Amino Transferase 544 U/L (17-59); Bilirubin,Total 0.3 mg/dL (0.2-1.3); Blood Urea Nitrogen 27 mg/dL (9-20); CRP 7.8 mg/dL (<1.0); Calcium 7.4 mg/dL (8.4-10.2); Carbon Dioxide 24 mmol/L (22-30); Chloride 102 mmol/L (98-107); Estimated CRCL calculation 40 ml/min; Estimated Glomerular Filt Rate 49; Glucose 445 mg/dL (75-110); Magnesium 1.4 mg/dL (1.6-2.3); Phosphorus 3.7 mg/dL (2.5-4.5); Sodium 138 mmol/L (137-145)
[2019-10-08] MEDS: HYDROCORTISONE SODIUM SUCCINATE 100 MG/2 ML VIAL IV PUSH ×3 (05:49→21:11)
[2019-10-08 06:35] LABS: Glucose Point of Care 386 (65-105)
[2019-10-08 06:35] LABS: Glucose Point of Care 473 (65-105)
[2019-10-08 06:35] LABS: Glucose Point of Care 374 (65-105)
[2019-10-08 06:35] LABS: Glucose Point of Care 497 (65-105)
[2019-10-08 06:35] LABS: Glucose Point of Care 480 (65-105)
[2019-10-08] MEDS: INSULIN HUMAN REGULAR (*BKC) 100 UNITS in SODIUM CHLORIDE 0.9% IV 99 ML 21.5 UNITS IV CONT (07:05)
--- NOTE | 2019-10-08 07:20 | WPDINTPN ---
Progress Note: A&P Assessment and Plan (1) Cardiopulmonary arrest with successful resuscitation: Code(s): I46.9 - Cardiac arrest, cause unspecified Status: Acute Assessment and Plan: patient with PEA arrest. According to the likely prolonged down time before EMS could arrive (approximately 30 minutes). CPR on the field with ROSC after 1 round of epi, patient was again pulseless EN route to the ER, CPR with another round of epi before ROSC. - Patient has been unresponsive - cardiac catheterization with no acute coronary /cardiac event - intra-aortic balloon pump in place due to severe hypotension (2) Acute ST elevation myocardial infarction (STEMI): Qualifiers: Involved coronary artery: unspecified coronary artery Qualified Code(s): I21.3 - ST elevation (STEMI) myocardial infarction of unspecified site Code(s): I21.3 - ST elevation (STEMI) myocardial infarction of unspecified site Status: Acute Assessment and Plan: acute ST-elevation DE on EKG done in the ER status post coronary artery angiogram which demonstrated chronic total occlusion of the right coronary artery with excellent collateral filling and hyperdynamic LV systolic function with EF of 80%. Modest nonocclusive left main disease otherwise no significant left coronary disease. - No intervention was done ECHO Summary 1. Left ventricular systolic function is normal, estimated at 65-70%. 2. There is no increased left ventricular wall thickness. 3. The left ventricular diastolic function is grade I diastolic dysfunction. 4. D shaped septum in systole and diastole consistent with right ventricular pressure and/or volume overload. 5. Right ventricular chamber dimension is severely enlarged. 6. Right ventricular systolic function is severely reduced. 7. Right atrial chamber dimension is mildly enlarged. 8. There is no aortic valve stenosis. 9. There is trace mitral valve regurgitation. 10. There is mild tricuspid valve regurgitation. 11. Moderate pulmonary hypertension, estimated pulmonary arterial systolic pressure is 45 mmHg. 12. Normal inferior vena cava with >50% collapse upon inspiration consistent with normal right atrial pressure, 5 mmHg. (3) Respiratory failure: Qualifiers: Chronicity: acute Respiratory failure complication: unspecified whether with hypoxia or hypercapnia Qualified Code(s): J96.00 - Acute respiratory failure, unspecified whether with hypoxia or hypercapnia Code(s): J96.90 - Respiratory failure, unspecified, unspecified whether with hypoxia or hypercapnia Status: Acute Assessment and Plan: patient was intubated on the field by EMS - this could likely be secondary to shock, acidosis, acute on chronic respiratory failure secondary to moderate interstitial lung disease. - Patient currently intubated on CMV mode of ventilation, ABGs reviewed, ventilator settings reviewed - chest x-ray shows bilateral diffuse infiltrates - hold further IV fluids - continue Vancomycin and Primaxin - pending urine Legionella, urine pneumococcal antigen - sputum and blood culture - COVID PCR is pending pulmonary function test on 07/25/2019 at [facility] showed moderate restrictive ventilatory defect ( report is in the chart) (4) Shock: Code(s): R57.9 - Shock, unspecified Status: Acute Assessment and Plan: shock, initially thought to be cardiogenic vs septic - - patient was given IV fluid bolus and started on IV fluids with bicarb - vasopressors of being weaned off. - Hold further IV fluids at this time as patient is volume overloaded overall - monitor urine output - continue antibiotics as above - blood and urine cultures have to obtained along with urinalysis - continue stress dose steroids - elevated lactic acidosis, will trend - lower extremity Dopplers were negative for DVT - echo suggest right
[2019-10-08] MEDS: FAMOTIDINE 20 MG/2 ML VIAL IV PUSH ×2 (08:16→20:05)
[2019-10-08 08:22] LABS: Anion Gap 10 mmol/L (8-16); Blood Urea Nitrogen 27 mg/dL (9-20); Calcium 7.4 mg/dL (8.4-10.2); Carbon Dioxide 28 mmol/L (22-30); Chloride 101 mmol/L (98-107); Estimated CRCL calculation 43 ml/min; Estimated Glomerular Filt Rate 54; Glucose 296 mg/dL (75-110); Potassium 3.5 mmol/L (3.4-5.0); Sodium 139 mmol/L (137-145)
--- NOTE | 2019-10-08 10:43 | PCDIET ---
MD order to start tube feedings. Recommend Glucerna 1.2 at goal of 60mL/hr x 22 hours/day for 1584kcal, 79g protein and 1062mL free water. Recommend Pro-Stat flush BID for additional 200kcal and 30g protein. Recommend 30mL water flush every 4 hours and adjust as needed. Will monitor.
[2019-10-08] MEDS: ENOXAPARIN 40 MG/0.4 ML SYRINGE SUB-Q (11:34)
[2019-10-08] MEDS: POTASSIUM CHLORIDE 20 MEQ PACKET (FOR LIQUID) 40 MEQ PO (11:34)
--- NOTE | 2019-10-08 12:20 | PM.PNCARD ---
Progress Note: A&P Assessment and Plan (1) Cardiopulmonary arrest with successful resuscitation: Code(s): I46.9 - Cardiac arrest, cause unspecified Status: Acute (2) ST elevation: Code(s): R94.31 - Abnormal electrocardiogram [ECG] [EKG] Status: Acute Assessment and Plan: Patient did not present with acute ST-elevation myocardial infarction. Echo reviewed, preserved LV function, severe RV enlargement and hypokinesis, pulmonary hypertension. Despite the appearance of his EKG suggesting acute current of injury he was found to have dominant posterior circulation with chronic total occlusion 2nd portion of the RCA which is a very large vessel which was fed by excellent [id number] collaterals. the left main had 30-40% stenosis LAD was moderate to large caliber tortuous without significant disease. There is a patent previously placed stent and circumflex without significant stenosis. LV function was noted to be hyperdynamic estimated at 80%, however he remained hypotensive with systolic pressures in the 60s prompting placement of an intra-aortic balloon pump. (3) Unresponsive: Code(s): R41.89 - Other symptoms and signs involving cognitive functions and awareness Status: Acute Assessment and Plan: As above. Very poor prognosis. (4) Leukocytosis: Code(s): D72.829 - Elevated white blood cell count, unspecified Status: Acute Assessment and Plan: Workup and recommendations post cardiac catheterization underway. CXR post LHC bilateral infiltrates. IV ABx (5) Shock: Code(s): R57.9 - Shock, unspecified Status: Acute Assessment and Plan: Post cardiac catheterization does not appear to be secondary to ACS but likely septic shock. PE, COVID-19, bacterial infectious. Lactic acid is very high. Stress dose steroids. remains on vasopressin and Levophed. Wean pressors as tolerated. Gravely ill. Neurologic status is lópez. This will dictate further decisions and plan of care. Continue balloon pump until pressors have been weaned and plan of care is clarified with his regarding his response to therapy and neurologic status. LFTs significant elevation, shock liver. Magnesium low, replete. Lactic acidosis resolving with therapy. Renal function improving. (6) Respiratory failure: Qualifiers: Chronicity: acute Respiratory failure complication: unspecified whether with hypoxia or hypercapnia Qualified Code(s): J96.00 - Acute respiratory failure, unspecified whether with hypoxia or hypercapnia Code(s): J96.90 - Respiratory failure, unspecified, unspecified whether with hypoxia or hypercapnia Status: Acute Assessment and Plan: Intubated. acute on chronic. Severe RV enlargement hypokinesis by echo. Pulmonary hypertension. Likely chronic. COVID-19 NEGATIVE Greatly appreciate Critical Care involvement. Discussed with critical care recommendation for CT angiogram of the chest to rule out pulmonary embolism given his immobility prior to PEA arrest and recent hospitalization. (7) Thrombocytopenia: Code(s): D69.6 - Thrombocytopenia, unspecified Status: Acute Assessment and Plan: concern regarding systemic anticoagulation given significant declining platelet count. Continue monitor closely. Hold off on systemic anticoagulation still trend and CT chest known. Furthermore, hypothermia protocol was not initiated as CT head could not be obtained as he was too unstable. (8) Coagulopathy: Code(s): D68.9 - Coagulation defect, unspecified Status: Acute Assessment and Plan: INR 1.5 today. Continue to monitor. (9) Diabetes: Code(s): E11.9 - Type 2 diabetes mellitus without complications Status: Acute Assessment and Plan: Continue current therapy. Will consult Medicine if plan to continue current treatment. (10) Acidosis: Code(s): E87.2 - Acidosis
[2019-10-08 12:24] LABS: Anion Gap 7 mmol/L (8-16); Blood Urea Nitrogen 26 mg/dL (9-20); Calcium 7.6 mg/dL (8.4-10.2); Carbon Dioxide 31 mmol/L (22-30); Chloride 100 mmol/L (98-107); Estimated CRCL calculation 43 ml/min; Estimated Glomerular Filt Rate 54; Glucose 144 mg/dL (75-110); Potassium 3.6 mmol/L (3.4-5.0); Sodium 138 mmol/L (137-145)
[2019-10-08 14:19] LABS: SARS-CoV-2 RNA PCR Negative
[2019-10-08] MEDS: INSULIN HUMAN REGULAR (*BKC) 100 UNITS in SODIUM CHLORIDE 0.9% IV 99 ML 7.7 UNITS IV CONT (15:41)
--- NOTE | 2019-10-08 17:16 | PC.NURSE ---
Patient transported to CT with RNx3 and RT at bedside. Transported successfully back to room without incident.
[2019-10-08 17:24] LABS: Anion Gap 4 mmol/L (8-16); Blood Urea Nitrogen 26 mg/dL (9-20); Calcium 7.1 mg/dL (8.4-10.2); Carbon Dioxide 33 mmol/L (22-30); Chloride 100 mmol/L (98-107); Estimated CRCL calculation 50 ml/min; Estimated Glomerular Filt Rate > 60; Glucose 84 mg/dL (75-110); Potassium 3.6 mmol/L (3.4-5.0); Sodium 137 mmol/L (137-145)
--- NOTE | 2019-10-08 17:44 | PC.NURSE ---
Contacted Chelly at [facility] for referral. Awaiting call back from a clinical coordinator.
--- NOTE | 2019-10-08 17:56 | PC.NURSE ---
[facility] Referral # [id number]
--- NOTE | 2019-10-08 18:12 | PCRCNOTE ---
PER DR. QUESADA DO NOT MAKE ANY VENT CHANGES. HE WANTS TO LEAVE HIM AT A TIDAL VOLUME OF 450 AND RR 30
[2019-10-08 18:57] LABS: Glucose Point of Care 171 (65-105)
[2019-10-08 18:57] LABS: Glucose Point of Care 319 (65-105)
[2019-10-08 18:57] LABS: Glucose Point of Care 108 (65-105)
[2019-10-08 18:57] LABS: Glucose Point of Care 76 (65-105)
[2019-10-08 18:57] LABS: Glucose Point of Care 256 (65-105)
[2019-10-08 18:57] LABS: Glucose Point of Care 206 (65-105)
[2019-10-08 18:57] LABS: Glucose Point of Care 141 (65-105)
[2019-10-08 18:57] LABS: Glucose Point of Care 368 (65-105)
[2019-10-08 18:57] LABS: Glucose Point of Care 157 (65-105)
[2019-10-08 18:57] LABS: Glucose Point of Care 137 (65-105)
[2019-10-08 18:57] LABS: Glucose Point of Care 149 (65-105)
[2019-10-08 18:57] LABS: Glucose Point of Care 138 (65-105)
[2019-10-08 20:06] LABS: Glucose Point of Care 261 (65-105)
[2019-10-08] MEDS: INSULIN ASPART (*BKC) 100 UNITS/ML SUB-Q ×2 (20:07→23:46)
[2019-10-08 20:26] LABS: Anion Gap 9 mmol/L (8-16); Blood Urea Nitrogen 26 mg/dL (9-20); Calcium 7.2 mg/dL (8.4-10.2); Carbon Dioxide 29 mmol/L (22-30); Chloride 96 mmol/L (98-107); Estimated CRCL calculation 46 ml/min; Estimated Glomerular Filt Rate 59; Glucose 249 mg/dL (75-110); Potassium 3.9 mmol/L (3.4-5.0); Sodium 134 mmol/L (137-145)
[2019-10-08 23:46] LABS: Glucose Point of Care 261 (65-105)
[2019-10-09] VITALS (42 sets, daily range): BP systolic 78–121; BP diastolic 29–59; PULSE 104–125; RESP 26–30; TEMP 36–37.2; O2SAT 93–100
[2019-10-09] MEDS: levETIRAcetam 500MG/NACL 100ML 500 MG/100 ML BAG 400 MG IVPB ×2 (03:14→17:52)
[2019-10-09] MEDS: NOREPINEPHRINE 8 MG/D5W 250 ML 8 MG/250 ML BAG 13.1 MG IV CONT (03:47)
[2019-10-09] MEDS: INSULIN ASPART (*BKC) 100 UNITS/ML SUB-Q ×5 (03:47→21:43)
[2019-10-09 03:51] LABS: Glucose Point of Care 268 (65-105)
[2019-10-09 04:27] LABS: Hematocrit 23.5 % (42.0-52.0); Mean Corpuscular Hemoglobin 32.1 pg (26-34); Mean Corpuscular Volume 94.4 fl (80-100); Mean Platelet Volume 10.9 fl (7.4-10.4); Platelet Count Result 98 k/mm3 (150-375); Red Blood Count 2.49 M/mm3 (4.6-6.20); Red Cell Distribution Width 13.7 % (11.5-14.5); White Blood Count 17.3 K/mm3 (4.5-10.0)
[2019-10-09 04:32] LABS: Alveolar/Arterial O2 Gradient 207.9 mmHg; Base Excess ABG 2.7 mEq/l (+/-2.0); Carboxyhemoglobin 0.3 % THb (0-2.0); Device VENTILATOR; Fractional Inspired Oxygen 50 %; Methemoglobin ABG 0.4 %THb (0-1.5); Oxygen Saturation ABG 98.4 % (95.0-100.0); Oxyhemoglobin 96.4 % THb (90.0-100.0); PCO2 ABG 34.5 mmHg (35.0-45.0); PO2 ABG 109.8 mmHg (80.0-100.0); Reduced Hemoglobin 2.9 %THb (0-5.0); Site Drawn ARTLINE; Total Hemoglobin 8.7 g/dL (12.0-18.0); pH ABG 7.495 (7.350-7.450)
[2019-10-09 04:33] LABS: Arterial Blood Gas PEEP 5 cmH2O; Arterial Blood Gas Tidal Volume 450 ml; Arterial Blood Gas Vent Mode CMV; Arterial Blood Gas Ventilator rate 30 /MIN
[2019-10-09 04:39] LABS: INR 1.2; Prothrombin Time 15.1 Seconds (11.1-14.7)
[2019-10-09 04:42] LABS: Lactic Acid 1.7 mmol/L (0.7-2.1)
[2019-10-09 04:43] LABS: Alanine Aminotransferase 151 U/L (4-50); Albumin Level 2.9 g/dL (3.5-5.1); Alkaline Phosphatase 120 U/L (38-126); Anion Gap 10 mmol/L (8-16); Aspartate Amino Transferase 334 U/L (17-59); Bilirubin,Total 0.5 mg/dL (0.2-1.3); Blood Urea Nitrogen 24 mg/dL (9-20); Calcium 7.5 mg/dL (8.4-10.2); Carbon Dioxide 28 mmol/L (22-30); Chloride 99 mmol/L (98-107); Estimated CRCL calculation 43 ml/min; Estimated Glomerular Filt Rate 54; Glucose 261 mg/dL (75-110); Magnesium 1.4 mg/dL (1.6-2.3); Potassium 3.7 mmol/L (3.4-5.0); Sodium 137 mmol/L (137-145)
[2019-10-09 04:54] LABS: CRP 20.2 mg/dL (<1.0)
[2019-10-09] MEDS: HYDROCORTISONE SODIUM SUCCINATE 100 MG/2 ML VIAL IV PUSH ×3 (05:01→21:46)
[2019-10-09] MEDS: POTASSIUM CHLORIDE 20 MEQ PACKET (FOR LIQUID) PO (07:48)
[2019-10-09] MEDS: MAGNESIUM SULF 2 GM/WATER 50ML 2 GM/50 ML BAG IVPB (07:48)
--- NOTE | 2019-10-09 08:06 | PC.NURSE ---
[facility] [phone]
[2019-10-09 08:21] LABS: Glucose Point of Care 269 (65-105)
[2019-10-09] MEDS: ENOXAPARIN 40 MG/0.4 ML SYRINGE SUB-Q (08:41)
[2019-10-09] MEDS: FAMOTIDINE 20 MG/2 ML VIAL IV PUSH ×2 (08:41→21:46)
--- NOTE | 2019-10-09 10:50 | PM.PNPUL ---
Progress Note: A&P Assessment and Plan (1) Pulmonary fibrosis: Code(s): J84.10 - Pulmonary fibrosis, unspecified Status: Acute Assessment and Plan: Recommend decreasing TV to 400 and RR to 25 today Recommend weaning hydrocortisone No signs of IPF exacerbation. No significant signs of acute pneumonia on CT chest. Sputum culture is pending Prognosis is very poor. (2) Shock: Code(s): R57.9 - Shock, unspecified Status: Acute Assessment and Plan: Likely septic despite lack of cultures (3) Respiratory failure: Qualifiers: Chronicity: acute Respiratory failure complication: unspecified whether with hypoxia or hypercapnia Qualified Code(s): J96.00 - Acute respiratory failure, unspecified whether with hypoxia or hypercapnia Code(s): J96.90 - Respiratory failure, unspecified, unspecified whether with hypoxia or hypercapnia Status: Acute Assessment and Plan: seconary to cardiac arrest and lactic acidosis (4) Cardiopulmonary arrest with successful resuscitation: Code(s): I46.9 - Cardiac arrest, cause unspecified Status: Acute Time Spent With Patient Time with patient: 15 - 25 minutes Subjective Date/time seen: 10/09/19 10:50 Interval history: Still doing very poorly. Lactic acidosis has resolved. CT chest show underlying IPF with mild bibasilar ateletecsis. No significant evidence of pneumonia. Requiring minimal vent support. Review of Systems Review of Systems: All systems reviewed & are unremarkable except as noted in HPI and below Exam Const: General: in distress Other: tachypneic Neck: Neck: supple and no JVD Resp: Auscultation: crackles (fine crackles to bases ) Cardio: Rate: tachycardic Heart sounds: no murmurs GI: GI Palp: Yes Soft to palpation Skin: Other: some mottling on his knees Extrem: Right upper extremity: abnormal capillary refill Psych: Mental Status: mental status grossly normal Affect: normal affect Objective Data Vital Signs Vital Signs: Vital Signs - 24 hr 10/08/19 11:00 10/08/19 12:00 10/08/19 13:00 Temperature 35.2 C L 35.6 C L 36.2 C L Pulse Rate 85 87 92 Pulse Rate [Right Pedal (Dorsalis Pedis) Doppler] Respiratory Rate 30 H 30 H 30 H Blood Pressure 136/47 L 142/48 H 123/41 L Pulse Oximetry 99 98 96 10/08/19 14:00 10/08/19 14:30 10/08/19 15:00 Temperature 36.8 C 37.4 C Pulse Rate 96 99 97 Pulse Rate [Right Pedal (Dorsalis Pedis) Doppler] Respiratory Rate 30 H 30 H Blood Pressure 137/47 L 117/41 L Pulse Oximetry 94 92 91 10/08/19 16:00 10/08/19 16:37 10/08/19 17:00 Temperature 37.7 C H 37.3 C Pulse Rate 95 88 90 Pulse Rate [Right Pedal (Dorsalis Pedis) Doppler] Respiratory Rate 30 H 30 H Blood Pressure 116/41 L 121/46 L Pulse Oximetry 94 100 98 10/08/19 18:00 10/08/19 19:00 10/08/19 19:40 Temperature 36.9 C 36.4 C Pulse Rate 86 88 Pulse Rate [Right Pedal (Dorsalis Pedis) Doppler] Respiratory Rate 30 H 30 H Blood Pressure 85/28 L 153/52 H 153/52 H Pulse Oximetry 94 98 10/08/19 20:00 10/08/19 20:47 10/08/19 20:52 Temperature 35.9 C L 35.7 C L Pulse Rate 93 101 H Pulse Rate [Right Pedal (Dorsalis Pedis) Doppler] Respiratory Rate 30 H Blood Pressure 128/47 L Pulse Oximetry 98 98 10/08/19 21:00 10/08/19 22:00 10/08/19 22:31 Temperature 35.7 C L 36.1 C L Pulse Rate 93 103 H Pulse Rate [Right Pedal (Dorsalis Pedis) Doppler] 98 103 H Respiratory Rate 30 H 30 H Blood Pressure 113/57 L 108/48 L 87/56 L Pulse Oximetry 98 98 10/08/19 23:00 10/08/19 23:21 10/09/19 00:00 Temperature 36.4 C L 36.6 C Pulse Rate 105 H 104 H 104 H Pulse Rate [Right Pedal (Dorsalis Pedis) Doppler] 105 H 104 H Respiratory Rate 30 H 30 H Blood Pressure 101/44 L 97/42 L Pulse Oximetry 95 96 96 10/09/19 00:17 10/09/19 01:00 10/09/19 02:00 Temperature 36.6 C 36.6 C Pulse Rate 108 H 108 H Pulse Rate [Right Pedal (Dorsalis Pedis) Doppler]
--- NOTE | 2019-10-09 10:51 | PM.PNCARD ---
Progress Note: A&P Assessment and Plan (1) Cardiopulmonary arrest with successful resuscitation: Code(s): I46.9 - Cardiac arrest, cause unspecified Status: Acute Assessment and Plan: Pt with severe anoxic injury. Prognosis grave. MTS involved family wishes for organ donation as is feasible per Critical Care. Requires Additional 24 hours off sedation and neurologic evaluation to determine brain . this most be concluded prior to transfer to [place] as facility for organ harvest and donation. (2) ST elevation: Code(s): R94.31 - Abnormal electrocardiogram [ECG] [EKG] Status: Acute Assessment and Plan: Patient did not present with acute ST-elevation myocardial infarction. Echo reviewed, preserved LV function, severe RV enlargement and hypokinesis, pulmonary hypertension. 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 the left main had 30-40% stenosis LAD was moderate to large caliber tortuous without significant disease. There is a patent previously placed stent and circumflex without significant stenosis. LV function was noted to be hyperdynamic estimated at 80%, however he remained hypotensive with systolic pressures in the 60s prompting placement of an intra-aortic balloon pump. (3) Unresponsive: Code(s): R41.89 - Other symptoms and signs involving cognitive functions and awareness Status: Acute Assessment and Plan: As above. Very poor prognosis. (4) Leukocytosis: Code(s): D72.829 - Elevated white blood cell count, unspecified Status: Acute Assessment and Plan: Workup and recommendations post cardiac catheterization underway. CXR post LHC bilateral infiltrates. IV ABx (5) Shock: Code(s): R57.9 - Shock, unspecified Status: Acute Assessment and Plan: Post cardiac catheterization does not appear to be secondary to ACS septic shock. PE, COVID-19, bacterial infectious. Lactic acid improving. Stress dose steroids. remains on vasopressin and Levophed. Wean pressors as tolerated. Gravely ill. Neurologic status is lópez. This will dictate further decisions and plan of care. Continue balloon pump so as not to jeopardize organ donation prospects. LFTs significant elevation, shock liver. Magnesium low, replete. Lactic acidosis resolving with therapy. Renal function improving. (6) Respiratory failure: Qualifiers: Chronicity: acute Respiratory failure complication: unspecified whether with hypoxia or hypercapnia Qualified Code(s): J96.00 - Acute respiratory failure, unspecified whether with hypoxia or hypercapnia Code(s): J96.90 - Respiratory failure, unspecified, unspecified whether with hypoxia or hypercapnia Status: Acute Assessment and Plan: Intubated. acute on chronic. Severe RV enlargement hypokinesis by echo. Pulmonary hypertension. Likely chronic. COVID-19 NEGATIVE Greatly appreciate Critical Care involvement. CT PE protocol negative for pulmonary embolism. (7) Thrombocytopenia: Code(s): D69.6 - Thrombocytopenia, unspecified Status: Acute Assessment and Plan: concern regarding systemic anticoagulation given significant declining platelet count. Continue monitor closely. Hold off on systemic anticoagulation. (8) Coagulopathy: Code(s): D68.9 - Coagulation defect, unspecified Status: Acute Assessment and Plan: Stable, improving INR 1.2 today. Continue to monitor. (9) Diabetes: Code(s): E11.9 - Type 2 diabetes mellitus without complications Status: Acute Assessment and Plan: Continue current therapy. Will consult Medicine if plan to continue current treatment. (10) Acidosis: Code(s): E87.2 - Acidosis
--- NOTE | 2019-10-09 10:53 | PCDIET ---
ICU Rounding Note: Tube feedings held yesterday for CT scan. Remain on hold with plan for withdrawal of care. If plan of care changes and aggressive nutritional therapy is desired, recommend resuming Glucerna 1.2 at 60mL/hr goal rate with Pro-Stat flush BID. Last recorded weight is 79.2kg which is stable. Bowel Motility: Last documented BM on 10/08/19. Labs Reviewed: Hgb (8.0), Hct (23.5), Glu (261), Alb (2.9), Tucker Ca (8.38) Meds Noted: Zithromax, Pepcid, Epinephrine, Fentanyl, Solu Cortef, Primaxin, Novolog, Versed, Levophed, Vancomycin, Vasopressin, Potassium Chloride, Magnesium Sulfate Additional Notes: No documented skin breakdown. Following daily in ICU rounds. Assessing/reassessing every 3 days.
[2019-10-09] MEDS: SODIUM CHLORIDE 0.9% IV 1,000 ML 999 ML IV CONT ×2 (11:08→15:37)
--- NOTE | 2019-10-09 11:12 | WPDINTPN ---
Progress Note: A&P Assessment and Plan (1) Anoxic brain injury: Code(s): G93.1 - Anoxic brain damage, not elsewhere classified Status: Acute Assessment and Plan: Head CT 10/07 showed Suggestion of diffuse anoxic injury with global cerebral edema characterized by decrease in degree of orta-white matter differentiation, effacement of the sulci and basal cisterns and suggestion of developing cerebellar tonsillar herniation. CT scan shows patient has anoxic brain injury. Clinical examination is also consistent with brain . Patient has no cough or gag reflects and is not responsive to pain. Pupil is mid size fixed. When I placed patient on pressure support ventilation he did not initiate any breath. Patient was on benzodiazepine and fentanyl infusion until yesterday morning. Will order EEG and consult Neurology for opinion. (2) Respiratory failure: Qualifiers: Chronicity: acute Respiratory failure complication: unspecified whether with hypoxia or hypercapnia Qualified Code(s): J96.00 - Acute respiratory failure, unspecified whether with hypoxia or hypercapnia Code(s): J96.90 - Respiratory failure, unspecified, unspecified whether with hypoxia or hypercapnia Status: Acute Assessment and Plan: patient was intubated on the field by EMS - Patient currently intubated on CMV mode of ventilation, ABGs reviewed, ventilator settings reviewed. Decrease respiratory rate to 26 - chest x-ray shows bilateral diffuse infiltrates - hold further IV fluids - continue Vancomycin and Primaxin - pending urine Legionella, urine pneumococcal antigen - sputum and blood culture - COVID PCR was negative CT Chest 10/07 IMPRESSION: 1. No pulmonary emboli. 2. Severe pulmonary fibrosis with moderate basilar dependent acute airspace disease superimposed likely pneumonia and/or edema. 3. Cardiomegaly. 4. Emphysema. 5. Rib fractures. pulmonary function test on 07/25/2019 at [facility] showed moderate restrictive ventilatory defect ( report is in the chart) (3) Cardiopulmonary arrest with successful resuscitation: Code(s): I46.9 - Cardiac arrest, cause unspecified Status: Acute Assessment and Plan: patient with PEA arrest. According to the likely prolonged down time before EMS could arrive (approximately 30 minutes). CPR on the field with ROSC after 1 round of epi, patient was again pulseless EN route to the ER, CPR with another round of epi before ROSC. - Patient has been unresponsive - cardiac catheterization with no acute coronary /cardiac event - intra-aortic balloon pump in place due to severe hypotension (4) Acute ST elevation myocardial infarction (STEMI): Qualifiers: Involved coronary artery: unspecified coronary artery Qualified Code(s): I21.3 - ST elevation (STEMI) myocardial infarction of unspecified site Code(s): I21.3 - ST elevation (STEMI) myocardial infarction of unspecified site Status: Acute Assessment and Plan: acute ST-elevation NV on EKG done in the ER status post coronary artery angiogram which demonstrated chronic total occlusion of the right coronary artery with excellent collateral filling and hyperdynamic LV systolic function with EF of 80%. Modest nonocclusive left main disease otherwise no significant left coronary disease. - No intervention was done ECHO Summary 1. Left ventricular systolic function is normal, estimated at 65-70%. 2. There is no increased left ventricular wall thickness. 3. The left ventricular diastolic function is grade I diastolic dysfunction. 4. D shaped septum in systole and diastole consistent with right ventricular pressure and/or volume overload. 5. Right ventricular chamber dimension is severely enlarged. 6. Right ventricular systolic function is severely reduced. 7. Right atrial chamber dimension is mildly enlarged. 8. There is no
--- NOTE | 2019-10-09 11:20 | WPDNEURCNPN ---
Assessment and Plan Additional Plan as discussed above in addition will obtain the EEG Consult date: 10/09/19 Time Seen: 11:20 HPI: Perico Rhoades is a 74 year old male Admitted to the hospital through the emergency room where he was brought by the EMS were called by his after he was found to be unresponsive with agonal breathing and subsequently found to be in [place] a for which ACL protocol were administered with ROS see after 1 round of CPR with epinephrine he again became pulseless resuscitated again after 1 round of CPR and epinephrine in the ER he was found to have ST elevation in the inferior leads with posterior extension and anterolateral changes and initially he was also bradycardic followed by rate controlled atrial fibrillation he was taken to cardiac [facility] but he was also hospitalized at [facility] in July of 2019 for acute on chronic respiratory failure that he also had a cardiac catheterization previously additionally he has history of diabetes mellitus hypertension dyslipidemia chronic kidney disease chronic respiratory failure with hypoxia since admission here he had been followed by analytical clerk adult family home program manager he was on sedation which have been taken away about 24 hours ago we will order the EEG and review today further recommendations will be made accordingly at this stage he is unresponsive to verbal commands unresponsive to the painful stimuli neck is supple with no evidence of meningeal irritation heart is regular lungs with rhonchi abdomen soft neurologically he is unresponsive to verbal or painful stimuli that his deep sternal rub or supraorbital pressure 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 on October 09, 2019 if any further question arises please do not hesitate to contact me I am going to review the EEG myself as [facility] Past Medical History Medical History (Updated 10/09/19 @ 11:18 by Hiram Orellana MD) Asbestos exposure Chronic back pain Coronary artery disease Diabetes Essential hypertension History of West Nile virus (WNV) infection Hyperlipidemia Interstitial lung disease Pulmonary fibrosis Surgical History Surgical History History of left-sided carotid endarterectomy History of spinal surgery Family History Family History Sibling Cerebral aneurysm Father Heart disease Social History Social History Social History: history of tobacco use, illicit drug use and alcohol, quit in 1998 Spiritual care concerns: No Meds Home Medications and Allergies Home Medications Medication Instructions Recorded Confirmed Type glimepiride 4 mg PO BID 10/07/19 10/07/19 History metformin 1,000 mg PO BID 10/07/19 10/07/19 History metoprolol succinate 25 mg PO DAILY 10/07/19 10/07/19 History omeprazole 20 mg PO BID 10/07/19 10/07/19 History Allergies Allergy/AdvReac Type Severity Reaction Status Date / Time No Known Allergies Allergy Verified 10/07/19 16:20 Vital Signs Vital Signs - 24 hr 10/08/19 12:00 10/08/19 13:00 10/08/19 14:00 Temperature 35.6 C L 36.2 C L 36.8 C Pulse Rate 87 92 96 Pulse Rate [Right Pedal (Dorsalis Pedis) Doppler] Respiratory Rate 30 H 30 H 30 H Blood Pressure 142/48 H 123/41 L 137/47 L Pulse Oximetry 98 96 94 10/08/19 14:30 10/08/19 15:00 10/08/19 16:00 Temperature 37.4 C 37.7 C H Pulse Rate 99 97 95 Pulse Rate [Right Pedal (Dorsalis Pedis) Doppler] Respiratory Rate 30 H 30 H Blood Pressure 117/41 L 116/41 L Pulse Oximetry 92 91 94 10/08/19 16:37
[2019-10-09 12:19] LABS: Glucose Point of Care 259 (65-105)
--- NOTE | 2019-10-09 13:00 | NEURO_ITS ---
TEST: ELECTROENCEPHALOGRAM DIAGNOSIS: ANOXIC BRAIN INJURY PATIENT NUMBER: [id number] EEG NUMBER: [id number] RECORDING DATE: 10/09/19 CLINICAL HISTORY: Patient was found unresponsive and had CPR done twice. Patient remains unresponsive after 30+ hours of no sedation. CONDITION OF RECORDING: Comatose; unresponsive EEG DESCRIPTION: The whole record consists of straight line with no evidence of cerebral neural activity mixed with regular EKG artifacts. Nonparoxysmal. Nonfocal. Nonlateralizing. IMPRESSION: Severely abnormal flat lined EEG with no evidence of cortical activity. Findings are compatible with the electrocerebral silence. Considering the history of being off all sedation these findings are suggestive of the cerebral . MTDD
[2019-10-09 15:10] LABS: Alveolar/Arterial O2 Gradient 355.8 mmHg; Base Excess ABG 3.1 mEq/l (+/-2.0); Fractional Inspired Oxygen 100 %; HCO3 ABG 26.4 mEq/l (22.0-26.0); Oxygen Saturation ABG 99.8 % (95.0-100.0); Oxyhemoglobin 97.8 % THb (90.0-100.0); PCO2 ABG 35.1 mmHg (35.0-45.0); PO2 ABG 322.1 mmHg (80.0-100.0); PO2 FiO2 Ratio Arterial Blood 3.22 %; Total Hemoglobin 8.8 g/dL (12.0-18.0); pH ABG 7.494 (7.350-7.450)
[2019-10-09 15:11] LABS: Device VENTILATOR; Site Drawn ARTLINE
[2019-10-09 15:13] LABS: Arterial Blood Gas PEEP 5 cmH2O; Arterial Blood Gas Tidal Volume 450 ml; Arterial Blood Gas Vent Mode CMV; Arterial Blood Gas Ventilator rate 28 /MIN
[2019-10-09] MEDS: NOREPINEPHRINE 8 MG/D5W 250 ML 8 MG/250 ML BAG 41.3 MG IV CONT (15:35)
[2019-10-09 15:38] LABS: Alveolar/Arterial O2 Gradient 31.3 mmHg; Base Excess ABG 1.5 mEq/l (+/-2.0); Fractional Inspired Oxygen 44 %; Oxygen Content ABG 13.3 %vol (16.0-22.0); Oxygen Saturation ABG 99.3 % (95.0-100.0); Oxyhemoglobin 97.6 % THb (90.0-100.0); PO2 ABG 210.3 mmHg (80.0-100.0); PO2 FiO2 Ratio Arterial Blood 4.78 %; Total Hemoglobin 9.3 g/dL (12.0-18.0)
[2019-10-09 15:39] LABS: PCO2 ABG 63.3 mmHg (35.0-45.0); Site Drawn ARTLINE; pH ABG 7.279 (7.350-7.450)
[2019-10-09 15:40] LABS: Device OTHER DEVICE
--- NOTE | 2019-10-09 15:43 | P.BRDTH_ITS ---
Brain Determination Determination of Brain Determination of Brain : The following criteria have been met: * Coma,irreversible and causes unknown * Neuroimaging explains coma * CHEMICAL PREPARER depressant drug effect absent * No evidence of residual paralytics * Abscence of severe acid-base,electrolyte,endocrine abnormality * Normothermia or mild hypothermia (core temperature> 36 C) * Systolic blood pressure > or = to 100mmHg Examination: * Pupils nonreactive to bright light * Corneal reflex absent * Oculocephalic reflex absent * Oculovestibular reflex absent * No facial movement to noxious stimuli at supraorbital nerve,temporomandibular joint * Gag reflex absent * Cough reflex absent to tracheal suctioning * Absence of motor response to noxious stimuli in all 4 limbs (spinally mediated reflexes are permissible) Apnea testing: * Patient is hemodynamically stable * Ventilator adjusted to provide normocarbia (PaC02 34-45mmHg) * Patient Preoxygenated with 100% Fi02 for>10 minutes to Pa02>200mmHg * Patient well-oxygenated with a PEEP of 5cm of water * Provided oxygen via a suction catheter to the level of the vernell at 6L/min or attach T-piece with CPAP at [id number] * Disconnected ventilator * Spontaneous respirations absent * Arterial blood gas drawn at 8-10 minutes,patient reconnected to ventilator * PC02> or = to 60mmHg, or 20mmHg rise from normal baseline value OR * Apnea test aborted An EEG has been performed and results are in the EMR which showed flat activity line. Murphy David performed the first physician exam and I have done the second physician exam including apnea test. I have deemed that this patient has met all criteria for brain and pt was pronounced at 1532 pm Total Additional Critical Care Time - 70 minutes Due to a high probability of clinically significant, life threatening deterioration, the patient required my highest level of preparedness to intervene emergently and I personally spent this critical care time directly and personally managing the patient. This critical care time included obtaining a history; examining the patient; pulse oximetry; ordering and review of studies; arranging urgent treatment with development of a management plan; evaluation of patient's response to treatment; frequent reassessment; and discussions with other providers. It was exclusive of separately billable procedures and treating other patients and teaching time. Please see Assessment and Plan section and the rest of the note for further information on patient assessment and treatment
--- NOTE | 2019-10-09 15:43 | WPDBRDTH ---
Brain Determination Determination of Brain Determination of Brain : The following criteria have been met: Coma,irreversible and causes unknown Neuroimaging explains coma HARDWARE TECHNICIAN depressant drug effect absent No evidence of residual paralytics Abscence of severe acid-base,electrolyte,endocrine abnormality Normothermia or mild hypothermia (core temperature> 36 C) Systolic blood pressure > or = to 100mmHg Examination: Pupils nonreactive to bright light Corneal reflex absent Oculocephalic reflex absent Oculovestibular reflex absent No facial movement to noxious stimuli at supraorbital nerve,temporomandibular joint Gag reflex absent Cough reflex absent to tracheal suctioning Absence of motor response to noxious stimuli in all 4 limbs (spinally mediated reflexes are permissible) Apnea testing: Patient is hemodynamically stable Ventilator adjusted to provide normocarbia (PaC02 34-45mmHg) Patient Preoxygenated with 100% Fi02 for>10 minutes to Pa02>200mmHg Patient well-oxygenated with a PEEP of 5cm of water Provided oxygen via a suction catheter to the level of the vernell at 6L/min or attach T-piece with CPAP at [id number] Disconnected ventilator Spontaneous respirations absent Arterial blood gas drawn at 8-10 minutes,patient reconnected to ventilator PC02> or = to 60mmHg, or 20mmHg rise from normal baseline value OR Apnea test aborted An EEG has been performed and results are in the EMR which showed flat activity line. Murphy David performed the first physician exam and I have done the second physician exam including apnea test. I have deemed that this patient has met all criteria for brain and pt was pronounced at 1532 pm Total Additional Critical Care Time - 70 minutes Due to a high probability of clinically significant, life threatening deterioration, the patient required my highest level of preparedness to intervene emergently and I personally spent this critical care time directly and personally managing the patient. This critical care time included obtaining a history; examining the patient; pulse oximetry; ordering and review of studies; arranging urgent treatment with development of a management plan; evaluation of patient's response to treatment; frequent reassessment; and discussions with other providers. It was exclusive of separately billable procedures and treating other patients and teaching time. Please see Assessment and Plan section and the rest of the note for further information on patient assessment and treatment
[2019-10-09 17:51] LABS: Legionella pneumophila Ag Ur Not Detected (Not Detected)
[2019-10-09] MEDS: ALBUMIN HUMAN 25% 25 GM/100 ML 200 ML IVPB (19:18)
[2019-10-09] MEDS: SODIUM BICARBONATE 8.4% 50 MEQ/50 ML VIAL 100 MEQ IV PUSH (19:18)
[2019-10-09] MEDS: SODIUM CHLORIDE 0.9% IV 500 ML IV CONT (19:19)
[2019-10-09 19:25] LABS: Glucose Point of Care 421 (65-105)
[2019-10-09 20:20] LABS: Anion Gap 10 mmol/L (8-16); Blood Urea Nitrogen 18 mg/dL (9-20); Calcium 7.8 mg/dL (8.4-10.2); Carbon Dioxide 29 mmol/L (22-30); Chloride 110 mmol/L (98-107); Estimated CRCL calculation 43 ml/min; Estimated Glomerular Filt Rate 54; Glucose 442 mg/dL (75-110); Potassium 4.2 mmol/L (3.4-5.0); Sodium 149 mmol/L (137-145)
[2019-10-09 21:39] LABS: Glucose Point of Care 387 (65-105)
[2019-10-09 21:41] LABS: Add Urine Microscopic? YES; Appearance Urine Clear (Clear); Bilirubin Urine Negative (Negative); Blood Urine 1+ (Negative); Color Urine Colorless (Yellow); Glucose Urine UA 3+ mg/dL (Negative); Ketones Urine 1+ mg/dL (Negative); Leukocyte Esterase Ur Negative LEU/UL (Negative); Mucus Urine Rare /lpf; Nitrate Urine Negative (Negative); Protein Urine Negative (Negative); RBC Urine 0-2 /hpf (0-2); Specific Grav Ur 1.006 (1.001-1.035); Urobilinogen Urine Negative mg/dL (<2.0); WBC Urine 0-3 /hpf
[2019-10-09 22:21] LABS: INR 1.3; Prothrombin Time 15.6 Seconds (11.1-14.7)
[2019-10-09 22:22] LABS: Partial Thromboplastin Time 38.8 SECONDS (22.3-36.8)
[2019-10-09 22:24] LABS: Alanine Aminotransferase 106 U/L (4-50); Albumin Level 3.4 g/dL (3.5-5.1); Alkaline Phosphatase 130 U/L (38-126); Anion Gap 12 mmol/L (8-16); Aspartate Amino Transferase 152 U/L (17-59); Bilirubin,Total 1.1 mg/dL (0.2-1.3); Blood Urea Nitrogen 19 mg/dL (9-20); Carbon Dioxide 27 mmol/L (22-30); Chloride 111 mmol/L (98-107); Estimated CRCL calculation 43 ml/min; Estimated Glomerular Filt Rate 54; Glucose 446 mg/dL (75-110); Sodium 150 mmol/L (137-145)
[2019-10-09 23:15] LABS: Pneumococcal Antigen Urine Not Detected (Not Detected)
[2019-10-09] MEDS: DESMOPRESSIN ACETATE 4 MCG/ML AMP 2 MCG IV PUSH (23:28)
[2019-10-09] MEDS: VASOPRESSIN INJ 100 UNITS in DEXTROSE 5% 95 ML IV CONT (23:28)
[2019-10-09] MEDS: DEXTROSE 5% 1,000 ML 1,000 ML 200 ML IV CONT (23:30)
[2019-10-09] MEDS: NOREPINEPHRINE 8 MG/D5W 250 ML 8 MG/250 ML BAG 30 MG IV CONT (23:31)
[2019-10-10] VITALS (25 sets, daily range): BP systolic 101–175; BP diastolic 37–72; PULSE 84–120; RESP 28–287; TEMP 36.1–37.1; O2SAT 92–98
[2019-10-10 00:32] LABS: Hematocrit 24.2 % (42.0-52.0); Hemoglobin 7.9 g/dL (14.0-18.0)
[2019-10-10 00:58] LABS: Creatine Kinase 261 U/L (55-170)
[2019-10-10 01:03] LABS: Glucose Point of Care 467 (65-105)
[2019-10-10] MEDS: INSULIN ASPART (*BKC) 100 UNITS/ML SUB-Q ×2 (01:09→05:50)
[2019-10-10] MEDS: levETIRAcetam 500MG/NACL 100ML 500 MG/100 ML BAG 400 MG IVPB (04:15)
[2019-10-10 05:17] LABS: Base Excess ABG -1.2 mEq/l (+/-2.0); Carboxyhemoglobin 0.3 % THb (0-2.0); Fractional Inspired Oxygen 50 %; Methemoglobin ABG 0.4 %THb (0-1.5); Oxygen Content ABG 9.9 %vol (16.0-22.0); Oxygen Saturation ABG 98.1 % (95.0-100.0); Oxyhemoglobin 95.4 % THb (90.0-100.0); PCO2 ABG 30.2 mmHg (35.0-45.0); PO2 ABG 102.5 mmHg (80.0-100.0); PO2 FiO2 Ratio Arterial Blood 2.05 %; Reduced Hemoglobin 3.9 %THb (0-5.0); pH ABG 7.481 (7.350-7.450)
[2019-10-10 05:18] LABS: Total Hemoglobin 7.2 g/dL (12.0-18.0)
[2019-10-10 05:19] LABS: Arterial Blood Gas PEEP 5 cmH2O; Arterial Blood Gas Tidal Volume 450 ml; Arterial Blood Gas Vent Mode CMV; Arterial Blood Gas Ventilator rate 28 /MIN; Device VENTILATOR; Site Drawn ARTLINE
[2019-10-10 05:31] LABS: Hematocrit 21.8 % (42.0-52.0); Immature Platelet Fraction Pct 5.5 % (0.9-11.2); Mean Corpuscular HGB Conc 30.7 g/dl (32-36); Mean Corpuscular Hemoglobin 30.5 pg (26-34); Mean Corpuscular Volume 99.1 fl (80-100); Mean Platelet Volume 11.5 fl (7.4-10.4); Platelet Count Result 54 k/mm3 (150-375); Red Cell Distribution Width 14.3 % (11.5-14.5); White Blood Count 11.9 K/mm3 (4.5-10.0)
[2019-10-10] MEDS: DEXTROSE 5% 1,000 ML 1,000 ML 200 ML IV CONT ×2 (05:31→10:26)
[2019-10-10 05:32] LABS: INR 1.4; Prothrombin Time 16.5 Seconds (11.1-14.7)
[2019-10-10 05:33] LABS: Partial Thromboplastin Time 45.8 SECONDS (22.3-36.8)
[2019-10-10 05:34] LABS: Lactic Acid 1.8 mmol/L (0.7-2.1)
[2019-10-10 05:42] LABS: Alanine Aminotransferase 89 U/L (4-50); Albumin Level 2.9 g/dL (3.5-5.1); Alkaline Phosphatase 121 U/L (38-126); Anion Gap 7 mmol/L (8-16); Aspartate Amino Transferase 123 U/L (17-59); Bilirubin,Total 0.7 mg/dL (0.2-1.3); Blood Urea Nitrogen 17 mg/dL (9-20); Calcium 7.8 mg/dL (8.4-10.2); Carbon Dioxide 29 mmol/L (22-30); Chloride 113 mmol/L (98-107); Estimated CRCL calculation 46 ml/min; Estimated Glomerular Filt Rate 59; Glucose 487 mg/dL (75-110); Magnesium 1.9 mg/dL (1.6-2.3); Phosphorus 2.5 mg/dL (2.5-4.5); Potassium 3.4 mmol/L (3.4-5.0); Sodium 149 mmol/L (137-145)
[2019-10-10 05:50] LABS: Hemoglobin 6.7 g/dL (14.0-18.0)
[2019-10-10] MEDS: HYDROCORTISONE SODIUM SUCCINATE 100 MG/2 ML VIAL IV PUSH (06:27)
[2019-10-10 06:47] LABS: CRP 37.1 mg/dL (<1.0)
--- NOTE | 2019-10-10 07:00 | P.PNCROSS_ITS ---
Event Note Event Note Event Note: Patient was pronounced by neurological criteria yesterday at 3:32 p.m patient is a registered organ donor. MTS is involved and patient is awaiting transfer to their facility. Transfer has been delayed because of patient's need for intra-aortic balloon pump. Overnight patient went into diabetes insipidus. Patient was started on D5W for hypernatremia, and I gave patient 2 mcg of DDAVP. His urine output is high and we are trying to match with the D5 water. Chest x-ray shows a very small tiny pneumothorax on the right side and subcu emphysema. Since patient is oxygenating adequately and pressures on the ventilator are unchanged, we will continue to monitor as olivia santoyo will soon be going for organ harvesting. Patient continues to be on Levophed for shock. vasopressin was added to support blood pressure and treat DI. Patient has serial CMP levels ordered. Hemoglobin 6.7 this morning 2 units of packed red cells were ordered for transfusion. Patient is hyperglycemic due to D5 infusion. I will start insulin infusion. ABG was reviewed. Will decrease tidal volume. Intra-aortic balloon pump is on 1:2. management per cardiology. MTS wants patient is to be off of balloon pump before transferring to their facility for organ harvesting. . Discussed case case with cardiology and MTS. Total Critical Care Time - 30 minutes Due to a high probability of clinically significant, life threatening deterioration, the patient required my highest level of preparedness to intervene emergently and I personally spent this critical care time directly and personally managing the patient. This critical care time included obtaining a history; examining the patient; pulse oximetry; ordering and review of studies; arranging urgent treatment with development of a management plan; evaluation of patient's response to treatment; frequent reassessment; and discussions with other providers. It was exclusive of separately billable procedures and treating other patients and teaching time. Please see Assessment and Plan section and the rest of the note for further information on patient assessment and treatment
[2019-10-10] MEDS: TUBING, BLOOD PLUM PUMP TUBING 1 EACH XX (07:44)
[2019-10-10] MEDS: SODIUM CHLORIDE 0.9% IV 250 ML 30 ML IV CONT (07:44)
[2019-10-10 07:47] LABS: Glucose Point of Care 460 (65-105)
[2019-10-10] MEDS: FAMOTIDINE 20 MG/2 ML VIAL IV PUSH (08:39)
[2019-10-10] MEDS: INSULIN HUMAN REGULAR (*BKC) 100 UNITS/ML 10 UNITS IV PUSH (08:45)
[2019-10-10 08:52] LABS: Glucose Point of Care 446 (65-105)
[2019-10-10 09:33] LABS: Glucose Point of Care 461 (65-105)
[2019-10-10 10:27] LABS: Glucose Point of Care 422 (65-105)
[2019-10-14 05:09] LABS: GGT 70 U/L (3-70)
== END 2019-10-09 15:32 | disposition expired | DRG 270 ==
LOC: ANHED 10:50 → ANHICU 10:57
PROVIDERS: Internal Medicine; Specialist; Admitting Provider Internal Medicine Cardiovascular Disease; Emergency Provider Emergency Medicine; Visit Provider Internal Medicine
PROC: 4A023N7 Measurement of Cardiac Sampling and Pressure, Left Heart, Percutaneous Approach (ICD-10-PCS; CPT 93452; principal; 2019-10-07 11:00)
PROC: 02703ZZ Dilation of Coronary Artery, One Artery, Percutaneous Approach (ICD-10-PCS; CPT 92920; 2019-10-07 11:00)
PROC: 5A02210 Assistance with Cardiac Output using Balloon Pump, Continuous (ICD-10-PCS; 2019-10-07 11:00)
DX: I21.3 ST elevation (STEMI) myocardial infarction of unspecified site (principal); J96.20 Acute and chronic respiratory failure, unspecified whether with hypoxia or hypercapnia; K72.00 Acute and subacute hepatic failure without coma; A41.9 Sepsis, unspecified organism; R65.21 Severe sepsis with septic shock; R57.9 Shock, unspecified; J84.9 Interstitial pulmonary disease, unspecified; E87.2 Acidosis; D68.9 Coagulation defect, unspecified; N17.9 Acute kidney failure, unspecified; G93.1 Anoxic brain damage, not elsewhere classified; I46.9 Cardiac arrest, cause unspecified; Z20.828 Contact with and (suspected) exposure to other viral communicable diseases; D69.6 Thrombocytopenia, unspecified; R94.31 Abnormal electrocardiogram [ECG] [EKG]; Z66 Do not resuscitate; R41.89 Other symptoms and signs involving cognitive functions and awareness; I25.10 Atherosclerotic heart disease of native coronary artery without angina pectoris; I27.20 Pulmonary hypertension, unspecified; J84.10 Pulmonary fibrosis, unspecified; Z99.81 Dependence on supplemental oxygen; E11.22 Type 2 diabetes mellitus with diabetic chronic kidney disease; I12.9 Hypertensive chronic kidney disease with stage 1 through stage 4 chronic kidney disease, or unspecified chronic kidney disease; N18.9 Chronic kidney disease, unspecified; E78.5 Hyperlipidemia, unspecified; D72.829 Elevated white blood cell count, unspecified; M54.9 Dorsalgia, unspecified; G89.29 Other chronic pain; Z79.84 Long term (current) use of oral hypoglycemic drugs; Z79.899 Other long term (current) drug therapy; Z87.891 Personal history of nicotine dependence
CPT/HCPCS: 33967; 36415; 36430; 36600; 51702; 70450; 71045; 71275; 80048; 80053; 81001; 82248; 82375; 82550; 82805; 82977; 83036; 83050; 83605; 83615; 83735; 83880; 84100; 84484; 85014; 85018; 85025; 85027; 85055; 85380; 85610; 85730; 86140; 86850; 86900; 86901; 86923; 87040; 87070; 87086; 87205; 87449; 87635; 87899; 92920; 93005; 93306; 93458; 93970; 94002; 94003; 94640; 95816; 99291; A9270; C1725; C1751; C1769; C1887; C1894; C9803; J0456; J0583; J0743; J1265; J1644; J1650; J1720; J1815; J1953; J2250; J2597; J3010; J3370; J3475; J7030; J7040; J7050; J7070; P9016; P9047; Q9967; U0003